=== PATIENT | female | born 1980 | race Caucasian/White ===

== ENCOUNTER 2016-04-20 13:25 | Inpatient (IN) | payer MEDICARE ==
[~2016-04-20] VITALS: Ht 160 cm; Wt 74.5 kg
[~2016-04-20 13:25] MED LIST: AMBIEN10 MG PO; CIPRO500 MG PO; EFFEXOR XR37.5 MG PO; PERCOCET 5-3251 TAB PO; SEROQUEL400 MG PO; TOPAMAX200 MG PO; XANAX2 MG PO
[2016-04-20 14:51] LABS: APPEARANCE CLEAR (CLEAR); BILIRUBIN NEGATIVE (NEGATIVE); COLOR YELLOW (YELLOW); GLUCOSE NEGATIVE (NEGATIVE); KETONE NEGATIVE (NEGATIVE); LEUKOCYTE ESTERASE TRACE (NEGATIVE); NITRITE NEGATIVE (NEGATIVE); PROTEIN NEGATIVE (NEGATIVE); UROBILINOGEN NORMAL (NORMAL)
[2016-04-20 14:54] LABS: BACTERIA MODERATE /hpf (NONE SEEN); RED CELLS - URINE 0-5 /hpf (0-5)
[2016-04-20 15:04] LABS: BASOPHILS 0.1 % (0.0-2.0); HEMATOCRIT 37.4 % (36.0-48.0); HEMOGLOBIN 11.9 g/dL (12-16); IMMATURE GRANULOCYTES 0.4 % (0-5); MCH 28.3 pg (26.0-34.0); MCHC 31.8 g/dL (31.0-37.0); MCV 88.8 fL (80.0-100.0); MEAN PLATELET VOLUME 9.3 fL (7.4-10.4); MONOCYTES 3.8 % (2-11); NEUTROPHILS 85.7 % (40-80); PLATELET COUNT 236 10x3/uL (130-400); RBC 4.21 10x6/uL (4.00-5.40); RDW 15.4 % (11.5-14.5); WBC 16.8 10x3/uL (4.8-10.8)
[2016-04-20 15:43] LABS: ALKALINE PHOSPHATASE 68 U/L (46-116); ALT (SGPT) 20 U/L (10-68); BILIRUBIN - TOTAL 0.26 mg/dL (0.2-1.3); CALC OSMOLALITY 275 mosm/kg (275-300); CARBON DIOXIDE 32.3 mmol/L (21.0-32.0); CHLORIDE - SERUM 103 mmol/L (98-107); CREATININE - SERUM 0.7 mg/dL (0.6-1.3); GLUCOSE 103 mg/dL (74-106); POTASSIUM - SERUM 4.1 mmol/L (3.5-5.1); PROTEIN - SERUM 7.3 g/dL (6.4-8.2); SODIUM 139 mmol/L (136-145); UREA NITROGEN 7 mg/dL (7-18); eGFR NON AFRICAN AMERICAN > 90 mL/min (90-120)
[2016-04-20 15:52] LABS: PRO BNP 883 pg/mL (0-125)
[2016-04-20 17:24] VITALS: BP 138/95; BMI 59.4
--- NOTE | 2016-04-20 17:50 | NUR ---
1730- RECEIVED PT VIA STRETCHER FROM HOSPITAL STAFF. PT IS ALERT AND ORIENTED. UP WITH ASSIST. ON 02 AT 2L VIA NC. NO MONITOR. IV SEEN TO LEFT FOREARM THAT IS CURRENTLY SALINE LOCKED. QUICKSTART DONE, ADMISSION ASSESSMENT DONE, AND ADMISSION HISTORY DONE. WILL CONTINUE TO AWAIT NEW ORDERS.
--- NOTE | 2016-04-20 18:54 | NUR ---
RESTING QUIETLY NAD NOTED
[2016-04-20 20:30] VITALS: BP 103/57
--- NOTE | 2016-04-20 23:23 | NUR ---
INIITAL ROUNDS COMPLETED AT 1920 HRS. PT ASKING FORHER PAIN MEDS AND SLEEPING MEDS. INFORMED PT THEY WERE NOT REORDEREED AT THIS TIME ADN RATIONALE THEY ARE TEACHER DEPRESSANTS AND HER RESP STATUS IS IMPAIRED AT THIS TIME. PT STATED UNDERSTANDING. ASSESSMENT COMPLETED AT 2015 HRS. VSS. IV TO LFA SL. LUNGS DIMINISHED IN BASES BILAT. O2 3LNC. PT UP TO BR WITH MINIMAL ASSIST. GARCIA. FRINED AT BEDSIDE. PT CURRENTLY EATING A POPSICLE. WILL CONTNUE TO MONITOR. SR UP X2, CALL LIGHT WITHIN REACH.
[2016-04-21 00:30] VITALS: BP 119/76
--- NOTE | 2016-04-21 03:05 | NUR ---
PT UP IN SHOWER. REQUESTING FOOD AND TOOTHBRUSH. WILL CONTINUE TO MONITOR.
[2016-04-21 04:30] VITALS: BP 105/54
--- NOTE | 2016-04-21 05:19 | NUR ---
PT RESTING WITH EYES CLOSED. RESP EVEN AND REGULAR. SR UP X2, CALL LIGHT WITHIN REACH. EXPERIMENTAL MACHINIST AT BEDSIDE.
--- NOTE | 2016-04-21 07:46 | NUR ---
ASSESSMENT COMPLETED. O2 AT 3 L/M PER NC. LUNGS DEMISHED IN BASES. UP WITH ASSIST DUE TO WEAKNESS. FAMILY AT BEDSIDE. SR UP TIMES 2 WITH CALL LIGHT IN REACH.
[2016-04-21 08:00] VITALS: BP 114/63
--- NOTE | 2016-04-21 11:08 | NUR ---
RESITNG QUIETLY RESP UNLABORED NAD NOTED
[2016-04-21 11:12] LABS: BASOPHILS 0 % (0.0-2.0); EOSINOPHILS 0 % (0-7); HEMATOCRIT 38.2 % (36.0-48.0); HEMOGLOBIN 11.4 g/dL (12-16); IMMATURE GRANULOCYTES 0.8 % (0-5); MCH 28.4 pg (26.0-34.0); MCHC 29.8 g/dL (31.0-37.0); MEAN PLATELET VOLUME 9.8 fL (7.4-10.4); MONOCYTES 2.4 % (2-11); NEUTROPHILS 89.8 % (40-80); PLATELET COUNT 270 10x3/uL (130-400); RBC 4.01 10x6/uL (4.00-5.40); RDW 15.3 % (11.5-14.5); WBC 18.8 10x3/uL (4.8-10.8)
[2016-04-21 11:18] LABS: MCV 95.3 fL (80.0-100.0)
[2016-04-21 11:23] LABS: CALCIUM 8.8 mg/dL (8.5-10.1); CARBON DIOXIDE 31.8 mmol/L (21.0-32.0); CHLORIDE - SERUM 103 mmol/L (98-107); CREATININE - SERUM 0.8 mg/dL (0.6-1.3); GLUCOSE 144 mg/dL (74-106); SODIUM 141 mmol/L (136-145); eGFR NON AFRICAN AMERICAN 87 mL/min (90-120)
[2016-04-21 11:29] LABS: CALC OSMOLALITY 282 mosm/kg (275-300); POTASSIUM - SERUM 3.2 mmol/L (3.5-5.1); UREA NITROGEN 9 mg/dL (7-18)
[2016-04-21 12:00] VITALS: BP 107/47
[2016-04-21 16:00] VITALS: BP 106/74
--- NOTE | 2016-04-21 18:47 | NUR ---
LYING QUIETLY. DNIES ANY NEEDS. CALL LIGHT IN REACH WITH SR UP.. WILL MONITOR
[2016-04-21 20:00] VITALS: BP 116/69
--- NOTE | 2016-04-21 20:32 | NUR ---
RESUMED CARE OF PT, LYING IN BED RESPIRATIONS EVEN AND UNLABORED ON 3LPM VIA NC. FAMILY AT BEDSIDE. NO NEEDS VOICED AT THIS TIME. WILL CONTINUE TO MONITOR. SEE NURSE ASSESSMENT.
--- NOTE | 2016-04-21 21:03 | NUR ---
BACK FROM CT
[2016-04-22 00:15] VITALS: BP 112/73
[2016-04-22 04:42] VITALS: BP 113/70
[2016-04-22 06:04] LABS: CALC OSMOLALITY 278 mosm/kg (275-300); CALCIUM 8.4 mg/dL (8.5-10.1); CHLORIDE - SERUM 102 mmol/L (98-107); CREATININE - SERUM 0.8 mg/dL (0.6-1.3); GLUCOSE 137 mg/dL (74-106); SODIUM 139 mmol/L (136-145); UREA NITROGEN 10 mg/dL (7-18); eGFR NON AFRICAN AMERICAN 87 mL/min (90-120)
[2016-04-22 06:08] LABS: POTASSIUM - SERUM 3.7 mmol/L (3.5-5.1)
[2016-04-22 06:09] LABS: BASOPHILS 0 % (0.0-2.0); EOSINOPHILS 0 % (0-7); HEMATOCRIT 35.5 % (36.0-48.0); HEMOGLOBIN 11.1 g/dL (12-16); LYMPHOCYTES 5.8 % (15-50); MCH 27.8 pg (26.0-34.0); MCHC 31.3 g/dL (31.0-37.0); MEAN PLATELET VOLUME 9.6 fL (7.4-10.4); NEUTROPHILS 89.2 % (40-80); PLATELET COUNT 312 10x3/uL (130-400); RBC 3.99 10x6/uL (4.00-5.40); RDW 15.7 % (11.5-14.5)
--- NOTE | 2016-04-22 06:10 | NUR ---
NO CHANGES FROM PREVIOUS ASSESSMENT, CALL LIGHT IN REACH. WILL CONTINUE TO MONITOR.
--- NOTE | 2016-04-22 08:04 | NUR ---
ASSESSMENT DONE. PT SLEEPING. EASILY AWAKEN. WHEEZING NOTED BILATERALLY. DENIES NEEDS AT THIS TIME. SPOUSE IN ROOM. CALL LIGHT WITH IN REACH. WILL CONT. TO MONITOR.
[2016-04-22 08:27] VITALS: BP 112/78
--- NOTE | 2016-04-22 08:38 | NUR ---
IV PATENT. AT BS. CALL LIGHT IN REACH. WILL CONT. PLAN OF CARE.
[2016-04-22 11:01] VITALS: BP 110/74
[2016-04-22 14:08] VITALS: Ht 160 cm; Wt 74.5 kg
--- NOTE | 2016-04-22 14:37 | NUR ---
PT SITTING UP IN BED TALKING ON THE PHONE. DENIES NEEDS. CALL LIGHT WITH IN REACH. WILL CONT. TO MONITOR.
[2016-04-22 15:00] VITALS: BP 110/70
--- NOTE | 2016-04-22 19:40 | NUR ---
LYING IN BED, REQUEST ICE CREAM AND POPSICLE GIVEN, DENIES NEEDS, ASSESSMENT COMPLETE, BED LOWEST POSITION, CALL LIGHT IN REACH, FAMILY AT BEDSIDE, WILL CONTINUE TO MONITOR
--- NOTE | 2016-04-23 00:27 | NUR ---
ENTRY ANALYST AT BEDSIDE FOR VS, NEEDS ADDRESSED. CALL LIGHT IN REACH. WILL CONT TO MONITOR.
[2016-04-23 02:00] VITALS: BP 119/69
[2016-04-23 04:00] VITALS: BP 122/75
[2016-04-23 05:54] LABS: BASOPHILS 0 % (0.0-2.0); EOSINOPHILS 0 % (0-7); HEMATOCRIT 37.5 % (36.0-48.0); HEMOGLOBIN 11.5 g/dL (12-16); IMMATURE GRANULOCYTES 2.1 % (0-5); LYMPHOCYTES 8.3 % (15-50); MCH 27.8 pg (26.0-34.0); MCHC 30.7 g/dL (31.0-37.0); MCV 90.8 fL (80.0-100.0); MEAN PLATELET VOLUME 9.4 fL (7.4-10.4); MONOCYTES 4.1 % (2-11); NEUTROPHILS 85.5 % (40-80); PLATELET COUNT 295 10x3/uL (130-400); RBC 4.13 10x6/uL (4.00-5.40); RDW 15.8 % (11.5-14.5); WBC 17.1 10x3/uL (4.8-10.8)
[2016-04-23 06:10] LABS: CALC OSMOLALITY 283 mosm/kg (275-300); CALCIUM 8.5 mg/dL (8.5-10.1); CARBON DIOXIDE 30.8 mmol/L (21.0-32.0); CHLORIDE - SERUM 106 mmol/L (98-107); CREATININE - SERUM 0.8 mg/dL (0.6-1.3); GLUCOSE 130 mg/dL (74-106); POTASSIUM - SERUM 4.2 mmol/L (3.5-5.1); SODIUM 141 mmol/L (136-145); eGFR NON AFRICAN AMERICAN 87 mL/min (90-120)
[2016-04-23 06:12] LABS: UREA NITROGEN 16 mg/dL (7-18)
[2016-04-23 07:13] LABS: MAGNESIUM - SERUM 2.3 mg/dL (1.8-2.4)
--- NOTE | 2016-04-23 07:49 | NUR ---
ASSESSMENT DONE. PT SLEEPING. WEARING BI-PAP. APPEARS COMFORTABLE. RESP EVEN AND UNLABORED. NO DISTRESS NOTED. CALL LIGHT WITH IN REACH. WILL CONT. TO MONITOR.
[2016-04-23 08:39] VITALS: BP 166/90
--- NOTE | 2016-04-23 09:30 | NUR ---
IV PATENT. AT BS. CALL LIGHT IN REACH. WILL CONT. PLAN OF CARE.
--- NOTE | 2016-04-23 10:58 | NUR ---
ALL OF PT'S MEDS GIVEN FROM 0900-11. NURSE WAS UNABLE TO SCAN MEDS INTO SYSTEM OR ENTER NUMBER. NURSE ATTEMPTED TO SIMPLY CLICK ON MED TO SAY IT WAS GIVEN AND THE SCREEN WOULD GO BLANK. IT AWARE OF SITUATION. IV TO PT'S RIGHT WIRST INFILTRATED. IV REMOVED. FLUSED IV IN PT'S LEFT HAND IN AN ATTEMPT TO USE, BUT IV BLEW. REMOVED THAT IV WELL. WILL RE-SITE NEW IV.
--- NOTE | 2016-04-23 11:40 | NUR ---
IV PLACED TO PTS RIGHT HAND WITH 22G X1 STICK. PT TOLERATED WELL.
--- NOTE | 2016-04-23 17:00 | NUR ---
PT'S SPOUSE PUSHING PT IN HALLS VIA W/C. PT ON RA. TOLERATING WELL.
--- NOTE | 2016-04-23 18:27 | NUR ---
PT SITTING UP IN BED "FACE-TIMING" ON HER PHONE. NO DISTRESS NOTED. CALL LIGHT WITH IN REACH. WILL CONT. TO MONITOR.
--- NOTE | 2016-04-23 18:32 | NUR ---
PT STATES SHE IS UNABLE TO GIVE URINE SPECIMEN IN A CUP, BECAUSE SHE CANNOT HOLD A CUP TO PEE.
--- NOTE | 2016-04-23 19:37 | NUR ---
DR MACDONALD AT BED SIDE TO SEE PT.
[2016-04-23 21:03] VITALS: BP 143/80
--- NOTE | 2016-04-23 21:23 | NUR ---
HS MEDS GIVEN WITH FRESH ICE WATER, HS SNACK PROVIDED, FAMILY AT BED SIDE.
--- NOTE | 2016-04-24 04:03 | NUR ---
RESTING WITH EYES CLOSED, RESPERATIONS EVEN, BI PAP IN USE, NO S/S DISTRESS NOTED.
[2016-04-24 06:00] VITALS: BP 91/52
[2016-04-24 06:12] LABS: BASOPHILS 0.2 % (0.0-2.0); EOSINOPHILS 0.1 % (0-7); HEMATOCRIT 39.2 % (36.0-48.0); HEMOGLOBIN 12.2 g/dL (12-16); IMMATURE GRANULOCYTES 4.2 % (0-5); LYMPHOCYTES 26.7 % (15-50); MCH 28.2 pg (26.0-34.0); MCHC 31.1 g/dL (31.0-37.0); MCV 90.7 fL (80.0-100.0); MEAN PLATELET VOLUME 9.1 fL (7.4-10.4); MONOCYTES 8.2 % (2-11); NEUTROPHILS 60.6 % (40-80); PLATELET COUNT 288 10x3/uL (130-400); RBC 4.32 10x6/uL (4.00-5.40); RDW 15.9 % (11.5-14.5); WBC 15.1 10x3/uL (4.8-10.8)
[2016-04-24 06:41] LABS: CALC OSMOLALITY 281 mosm/kg (275-300); CALCIUM 8.2 mg/dL (8.5-10.1); CARBON DIOXIDE 27.5 mmol/L (21.0-32.0); CHLORIDE - SERUM 106 mmol/L (98-107); CREATININE - SERUM 0.8 mg/dL (0.6-1.3); GLUCOSE 90 mg/dL (74-106); SODIUM 140 mmol/L (136-145); UREA NITROGEN 20 mg/dL (7-18); eGFR NON AFRICAN AMERICAN 87 mL/min (90-120)
[2016-04-24 06:43] LABS: POTASSIUM - SERUM 3.3 mmol/L (3.5-5.1)
[2016-04-24 08:00] VITALS: BP 107/69
[2016-04-24 12:00] VITALS: BP 109/69
--- NOTE | 2016-04-24 14:07 | NUR ---
Is the patient Alert and Oriented? Yes 0 * How many steps to enter\exit or inside your home? 7 0 * PCP DR. DE LA VEGA BUT WANTS TO CHANGE TO USE [facility] 0 * Pharmacy [facility] [address] * Preadmission Environment Home with Family 0 * ADLs Partial Dependent 0 * Partial ADLs (Assistance needed) Bathing 0 * Equipment CPAP 0 * List name and contact numbers for known caregivers / representatives who currently or will assist patient after discharge: MOTHER: TOMASA COOPER [phone] 0 * Community resources currently utilized None 0 * Additional services required to return to the preadmission environment? No 0 * Can the patient safely return to the preadmission environment? Yes 0 * Has this patient been hospitalized within the prior 30 days at any hospital? No 0 PATIENT IS ALERT AND AWAKE. SHE STATES SHE LIVES AT HOME WITH HER MOTHER, HER BOYFRIEND, AND HER CHILDREN. SHE STATES HER MOTHER WILL BE AVAILABLE TO DRIVE HER HOME AT DISCHARGE. PATIENT STATES SHE HAS BEEN REQUIRING HELP WITH HER ADL'S AND HER BOYFRIEND ASSISTS HER WITH HER BATHS. PATIENT STATES HER PCP IS DR. DE LA VEGA. SHE STATES SHE WANTS TO CHANGE TO [facility] PHYSICIAN. SHE WILL ASK ABOUT CHANGING MD'S AT FOLLOW UP. PAT[facility] [address] SHE DENEIS HOME HEALTH. SHE TELLS ME THAT SHE HAS CPAP AT HOME PROVIDED BY [facility]. PATIENT STATES THERE ARE 7 STEPS TO ENTER HER HOME.
--- NOTE | 2016-04-24 14:49 | NUR ---
ALERT AND ORIENTED X4. SITTING UP IN CHAIR. DENIES PAIN. CHRONIC SOB TREATED WITH OXYGEN THERAPY AND UPDRAFTS. ELECTROLYTE PROTOCOL INITIATED BY STUDENT NURSE. SERUM POTASSIUM LAB ORDERED IN 4 HOURS PER PROTOCOL. SPOUSE AT BEDSIDE. CONTINUE PLAN OF CARE AND SAFETY PRECAUTIONS.
[2016-04-24 16:00] VITALS: BP 125/67
--- NOTE | 2016-04-24 17:51 | NUR ---
SITTING UP IN CHAIR. ALERT AND ORIENTED X4. NO CHANGE. DENIES PAIN. CHRONIC SOB TREATED WITH OXYGEN THERAPY. CONTINUE PLAN OF CARE AND SAFETY PRECAUTIONS.
--- NOTE | 2016-04-24 19:48 | NUR ---
OUT OF ROOM WITH .
--- NOTE | 2016-04-24 21:16 | NUR ---
HS MEDS GIVEN WITH FRESH CUP OF ICE AND COLA. PAIN AND ANXIETY MEDS GIVEN AT AT PT REQUEST. RT ALSO AT BED SIDE FOR UPDRAFT AND TO PLACE BIPAP ON PT. NO OTHER NEEDS, AT THIS TIME, WILL CONT TO MONITOR.
[2016-04-24 21:39] VITALS: BP 111/72
--- NOTE | 2016-04-25 00:35 | NUR ---
TILT WALL SUPERVISOR AT BEDSIDE TO OBTAIN VITALS, CALL LIGHT IN REACH. WILL CONTINUE WITH PLAN OF CARE.
--- NOTE | 2016-04-25 04:35 | NUR ---
PT RESTING ON RIGHT SIDE, BIPAP IN USE, BED LOW, CL IN REACH, WILL CONT TO MONITOR.
[2016-04-25 04:56] VITALS: BP 117/68
[2016-04-25 07:03] LABS: HEMATOCRIT 40.4 % (36.0-48.0); HEMOGLOBIN 12.8 g/dL (12-16); MCH 28.3 pg (26.0-34.0); MCHC 31.7 g/dL (31.0-37.0); MCV 89.4 fL (80.0-100.0); MEAN PLATELET VOLUME 9.3 fL (7.4-10.4); PLATELET COUNT 297 10x3/uL (130-400); RBC 4.52 10x6/uL (4.00-5.40); RDW 15.5 % (11.5-14.5); WBC 20.3 10x3/uL (4.8-10.8)
[2016-04-25 07:06] LABS: CALC OSMOLALITY 286 mosm/kg (275-300); CALCIUM 8.2 mg/dL (8.5-10.1); CARBON DIOXIDE 28.7 mmol/L (21.0-32.0); CHLORIDE - SERUM 105 mmol/L (98-107); CREATININE - SERUM 0.8 mg/dL (0.6-1.3); GLUCOSE 134 mg/dL (74-106); SODIUM 141 mmol/L (136-145); UREA NITROGEN 23 mg/dL (7-18); eGFR NON AFRICAN AMERICAN 87 mL/min (90-120)
[2016-04-25 07:22] LABS: LYMPHOCYTES 11 % (15-50); MONOCYTES 1 % (2-11); NEUTROPHILS 88 % (40-80); PLATELET ESTIMATE NORMAL
--- NOTE | 2016-04-25 07:36 | NUR ---
AM ROUNDING- PT LAYING IN BED ON RIGHT SIDE WITH EYES CLOSED RESTING. BOYFRIEND LAYING BESIDE PT. ON EP, WILL CHECK AM LABS AND TREAT PER PROTOCOL. ON 02 AT 5L VIA NC. NO MONITOR. IV SEEN TO RIGHT HAND WITH NS RUNNING AT KVO (5CC). PER REPORT PT IS ALERT AND ORIENTED AND UP AD YAJAIRA. NO NEED AT CURRENT TIME. WILL CONTINUE TO MONITOR.
[2016-04-25 08:01] VITALS: BP 90/46
--- NOTE | 2016-04-25 10:59 | NUR ---
Nutrition Follow Up: Chart reviewed. Pt is eating 79% meal avg on a regular diet. Wt gain 19# since admit per chart. +BM 04/25/16. Labs noted. Meds noted including Lasix, Solu-Medrol, Flagyl. Pt with good po intake at this time. Rec continue current diet. RD following.
[2016-04-25 12:24] VITALS: BP 130/76
[2016-04-25 16:00] VITALS: BP 139/61
--- NOTE | 2016-04-25 17:29 | NUR ---
PT SITTING UP IN BED WITH EYES OPEN EATING DINNER. BOYFRIEND AT BEDSIDE. DENIES ANY NEED AT CURRENT TIME. WILL CONTINUE TO MONITOR AND CONTINUE WITH PLAN OF CARE.
[2016-04-25 20:00] VITALS: BP 111/55
[2016-04-25 22:28] LABS: MYCOPLASMA PNEUMO IGG 643 U/mL (0-99)
[2016-04-26] VITALS: BP 109/44
[2016-04-26 04:00] VITALS: BP 120/62
[2016-04-26 06:48] LABS: HEMATOCRIT 40.2 % (36.0-48.0); HEMOGLOBIN 12.8 g/dL (12-16); MCH 28.1 pg (26.0-34.0); MCHC 31.8 g/dL (31.0-37.0); MCV 88.4 fL (80.0-100.0); MEAN PLATELET VOLUME 9.2 fL (7.4-10.4); PLATELET COUNT 320 10x3/uL (130-400); RBC 4.55 10x6/uL (4.00-5.40); RDW 15.6 % (11.5-14.5); WBC 22.5 10x3/uL (4.8-10.8)
[2016-04-26 06:56] LABS: CALC OSMOLALITY 287 mosm/kg (275-300); CARBON DIOXIDE 28.2 mmol/L (21.0-32.0); CHLORIDE - SERUM 107 mmol/L (98-107); CREATININE - SERUM 0.9 mg/dL (0.6-1.3); GLUCOSE 148 mg/dL (74-106); SODIUM 141 mmol/L (136-145); UREA NITROGEN 25 mg/dL (7-18); eGFR NON AFRICAN AMERICAN 76 mL/min (90-120)
[2016-04-26 08:18] LABS: EOSINOPHILS 8 % (0-7); LYMPHOCYTES 10 % (15-50); MONOCYTES 7 % (2-11); NEUTROPHILS 66 % (40-80); PLATELET ESTIMATE NORMAL
[2016-04-26 08:22] VITALS: BP 125/59
--- NOTE | 2016-04-26 10:28 | NUR ---
0715- AM ROUNDING- PT LAYING IN BED ON BACK WITH EYES CLOSED RESTING. BOYFRIEND AT BEDSIDE. ON AT 5L VIA NC. NO MONITOR. IV SEEN TO RIGHT HAND WITH NS RUNNING AT KV0 (5CC). EP, WILL CHECK AM LABS AND TX PER PROTOCOL. WILL CONTINUE TO MONITOR.
[2016-04-26 12:42] VITALS: BP 126/86
--- NOTE | 2016-04-26 14:38 | NUR ---
1100- PT ASKED ME TO UNHOOK HER FROM HER IV FLUIDS. I ASKED PT WHY. PT STATED "I WANT TO GO DOWN TO THE [place]". I ASKED PT IF SHE WAS GOING DOWN TO SMOKE. PT STATES " YES IM GOING TO SMOKE, ALL I NEED IS A FEW DRAGS". I INFORMED PT THAT I DID NOT THINK THAT WAS A VERY GOOD IDEA BECAUSE SHE HAS A NICOTINE PATCH ON (TO THE BACK OF HER RIGHT SHOULDER). PT STATED " I KNOW". WILL CONTINUE TO MONITOR.
--- NOTE | 2016-04-26 14:41 | NUR ---
PT OUT OF ROOM VIA WHEEL CHAIR TO " GO SMOKE". PT STATED TO ME SHE NEVER WENT BEFORE BECAUSE THEY COULDN'T FIND A WHEELCHAIR.
[2016-04-26 16:55] VITALS: BP 121/70
--- NOTE | 2016-04-26 18:08 | NUR ---
PT LAYING IN BED ON RIGHT SIDE TALKING ON CELL PHONE. BOYFRIEND AT BEDSIDE. NO NEED AT CURRENT TIME. WILL CONTINUE TO MONITOR.
--- NOTE | 2016-04-26 19:30 | NUR ---
INITIAL ROUNDS COMPLETED. PT DECLINING O2 AT HTIS TIME. STATES IS GOING OUTSIDE TO SEE FAMILY. REINFORCED NO SMOKING ON PROPERTY AND SMOKING WILL AGGRAVATE HER RESP STATUS. ATTEMPTED TO PERSAUDE PT NOT TO GO OUTSIDE WITHOUT SUCCESS. PT DOWN HALLWAY VIA W/C.
--- NOTE | 2016-04-26 19:52 | NUR ---
PT BACK TO ROOM WITH LARGE ENTOURAGE IN TOW AND PIZZA. PT DENIES ANY DISCOMFORT.
[2016-04-26 21:31] VITALS: BP 121/64
--- NOTE | 2016-04-26 22:19 | NUR ---
ASSESSMENT COMPLETED AT 2019 HRS. VSS. [id number]. IV TO R HAND SL. LUNGS DIMINISHED IN BASES BILAT. GARCIA. PALPABLE PERIPHERAL PULSES. FAMILY AT BEDSDIE. PM MEDS GIVEN. PT CURRENTLY ON BIPAP. WILL CONTINUE TO MONITOR. SR UP X2,CALL LIGHT WITHIN REACH.
--- NOTE | 2016-04-27 00:30 | NUR ---
SCHEDULED MED GIVEN. PT DENIES ANY DISCOMFORT. WILL CONTINUE TO MONITOR.
--- NOTE | 2016-04-27 02:15 | NUR ---
PT RESTING WITH EYES CLOSED. RESP EVEN AND REGULAR. SR UP X2, CALL LIGHT WITHIN REACH.
--- NOTE | 2016-04-27 04:22 | NUR ---
PT RESTING WITH EYES CLOSED. RESP EVEN AND REGULAR. SR UP X2, CALL LIGHT WITHIN REACH.
[2016-04-27 05:30] LABS: BASOPHILS 0.1 % (0.0-2.0); EOSINOPHILS 0.1 % (0-7); HEMOGLOBIN 13.1 g/dL (12-16); LYMPHOCYTES 9.8 % (15-50); MCH 27.8 pg (26.0-34.0); MCHC 31.2 g/dL (31.0-37.0); MEAN PLATELET VOLUME 9.4 fL (7.4-10.4); MONOCYTES 4.5 % (2-11); NEUTROPHILS 80.5 % (40-80); PLATELET COUNT 311 10x3/uL (130-400); RBC 4.72 10x6/uL (4.00-5.40); RDW 15.6 % (11.5-14.5); WBC 19.1 10x3/uL (4.8-10.8)
[2016-04-27 05:51] LABS: CALC OSMOLALITY 283 mosm/kg (275-300); CALCIUM 8.1 mg/dL (8.5-10.1); CARBON DIOXIDE 27.3 mmol/L (21.0-32.0); CHLORIDE - SERUM 104 mmol/L (98-107); CREATININE - SERUM 0.7 mg/dL (0.6-1.3); GLUCOSE 167 mg/dL (74-106); POTASSIUM - SERUM 4.3 mmol/L (3.5-5.1); SODIUM 138 mmol/L (136-145); UREA NITROGEN 25 mg/dL (7-18); eGFR NON AFRICAN AMERICAN > 90 mL/min (90-120)
[2016-04-27 05:53] VITALS: BP 109/54
--- NOTE | 2016-04-27 06:37 | NUR ---
VSS THROUGHOUT NIGHT. PT DENIED ANY DISCOMFORT. NEEDS MET; WILL CONTINUE TO MONITOR.
--- NOTE | 2016-04-27 07:24 | NUR ---
PT IS ALERT. NO SS OF DISTRESS AT THIS TIME. WILL CONTINUE TO MONTIOR.
--- NOTE | 2016-04-27 07:36 | NUR ---
PATIENT IS ALERT/ORIENT X4. SALINE LOCK RIGHT HAND COVERED SO PATIENT CAN GET IN SHOWER. C-PAP ON AT HS. OXYGEN AT 3L PER N/C. BOYFRIEND IN ROOM WITH PATIENT.
[2016-04-27 09:19] VITALS: BP 121/51
[2016-04-27 12:21] VITALS: BP 120/69
--- NOTE | 2016-04-27 13:02 | NUR ---
PHYSICAL THERPAY HERE TO WALK WITH PATIENT. PATIENT WENT OUTSIDE WITH BOYFRIEND TO SMOKE. THERAPY STATED THAT THEY WILL NOT BE WORKING WITH THIS PATIENT. PATIENT AMBULATES BY SELF.
[2016-04-27] MEDS ORDERED: PREDNISONE10 MG PO ×2 (14:20→17:07)
[2016-04-27] MEDS ORDERED: SINGULAIR10 MG PO ×2 (14:20→17:05)
[2016-04-27] MEDS ORDERED: BENZONATATE200 MG PO ×2 (14:20→17:11)
[2016-04-27] MEDS ORDERED: PROVENTIL HFA6.7 GM INH (14:30)
[2016-04-27] MEDS ORDERED: SYMBICORT 16010.2 GM INH (14:30)
[2016-04-27] MEDS ORDERED: NYSTATIN ORAL SU5 ML PO (15:14)
--- NOTE | 2016-04-27 15:43 | NUR ---
DISCHARGE ORDERS WRITTEN DR MORENO.
[2016-04-27 15:49] VITALS: BP 115/83
[2016-04-27] MEDS ORDERED: IPRAT-ALBUT 0.5-3 ML UPD (17:05)
[2016-04-27] MEDS ORDERED: PROMETHAZINE W473 M1 PO (17:10)
[2016-04-27] MEDS ORDERED: MUCINEX DM ER1 EAC1 PO (17:10)
[2016-04-27] MEDS ORDERED: LEVAQUIN500 MG PO (17:13)
--- NOTE | 2016-04-27 17:37 | NUR ---
PATIENT GIVEN DISCHARGE INSTRUCTIONS. BOYFRIEND HERE TO TAKE PATIENT HOME
--- NOTE | 2016-04-27 17:49 | NUR ---
patient discharged home with significant other and child. Order obtained for Nebulizer. Provider is [facility]. CM contacted [employer] sales representative graphic art Jimi, who states he will contact patient at home for delivery. Patient states it does not matter to her if it is delivered today or tomorrow, as her friend mut get home by a certain time, due to having an ankle monitor on. Address is: [address] [place] [id number]. . [facility]acy [facility] use [facility] and meds are called in there. Patient uses a C-Pap prescribed by Dr Patterson. IMM signed Nd Patient Choice Form signed.Cinthia Lopez RN, CM.
--- NOTE | 2016-04-27 17:58 | NUR ---
PATIENT TAKEN OUT BY STAFF AND
--- NOTE | 2016-04-29 11:07 | NUR ---
Patient Name: DAKSHA DAMON Encounter No: [id number] : 1980 Primary Insurance: MEDICARE A & B Anticipated DC Date: 04-27-2016 Planned Disposition: Home DCP follow-up note: CM RECEIVED MESSAGE FROM PT THAT SHE HAS NOT RECEIVED HER NEBULIZER. CM CALLED [facility], , WHO REPORTS THAT [facility] NEVER RECEIVED SIGNED ORDER FROM THE DOCTOR TO PROVIDE THE NEBULIZER. [facility] IS CONTACTING DR. MACDONALD'S OFFICE TO OBTAIN THE ORDER AND WILL ARRANGE HOME DELIVERY WHEN THE SIGNED ORDER IS PROVIDED FROM DR. MACDONALD. [facility] HAS PT'S CELL PHONE NUMBER AND WILL FOLLOW UP WITH PT. CM CALLED DAKSHA DAMON, , INFORMED HER THAT [facility] IS WORKING ON GETTING THE SIGNED ORDER AND WILL ARRANGE DELIVERY SOON THE SIGNED ORDER IS RECEIVED. Michele La, CASE MANAGEMENT
--- NOTE | 2016-04-29 16:54 | NUR ---
Patient Name: DAKSHA DAMON Encounter No: [id number] : 1980 Primary Insurance: MEDICARE A & B Anticipated DC Date: 04-27-2016 Planned Disposition: Home DCP follow-up note: CM FAXED CHART NOTES TO [facility], , TO ASSIST IN OBTAINING NEEDED NEBULIZER FOR PT. CM CALLED PT AT HOME, DAKSHA DAMON, , NOTIFIED OF EFFORTS. JAN WAGNER, CASE MANAGEMENT
--- NOTE | 2016-05-03 13:49 | CN ---
PATIENT NAME:DAKSHA AVILES MEDICAL RECORD: [id number] : [birth year] LOCATION:D. D.2130 ADMIT DATE: 04/20/16 ACCOUNT: [id number] CONSULTING PHYSICIAN: BETHANY MILLARD MD REFERRING PHYSICIAN: HUA THORNTON MD DATE OF CONSULTATION: 04/21/2016 CONSULT REQUESTING PHYSICIAN: Dr. Hau Thornton. REASON FOR CONSULTATION: Acute exacerbation of chronic obstructive pulmonary disease, obstructive sleep apnea, dyspnea, hypoxia. HISTORY OF PRESENT ILLNESS: Ms. Aviles is a 35-year-old female. She is sick for the last 1 week. She is coughing. She is wheezing. She has shortness of breath with mild exertion. The patient came into the ER. In evaluation, the patient was hypoxic and also a chest radiograph showed bilateral increased interstitial marking with significant leukocytosis. Now, she is still coughing and wheezing, but feeling a little bit better. She denies any fever or chills, no night sweats. REVIEW OF SYSTEMS: Mainly in the history of present illness. PAST MEDICAL HISTORY: 1. Obstructive sleep apnea. 2. Asthma. 3. History of seizure disorder. 4. Tobacco dependence syndrome. 5. Diabetes. 6. History of glaucoma. PAST SURGICAL HISTORY: 1. Hysterectomy. 2. She has a foot surgery. 3. Tubal ligation. ALLERGIES: SHE IS ALLERGIC TO PENICILLIN AND CEPHALEXIN. PRESENT MEDICATIONS: On [employer] was reviewed. PERSONAL AND SOCIAL HISTORY: The patient still continues to smoke 1 pack per day. She is a nondrinker. FAMILY HISTORY: Noncontributory. PHYSICAL EXAMINATION: GENERAL: Now, the patient is lying comfortably. The patient is not in acute distress. VITAL SIGNS: The blood pressure is 114/63, pulse is 108, respirations 19, temperature is 98.6, SpO2 is 90% on 4 liters nasal cannula. HEENT: Conjunctivae are pink. Sclerae nonicteric. NECK: Supple. There is no JVD. CHEST: There is wheeze on forceful expiration. There are bibasilar crackles. HEART: Rhythm regular, normal sound, no murmur. ABDOMEN: Soft. Bowel sounds present. No hepatosplenomegaly. RECTAL: Deferred. CONSULT REPORT [id number] DAKSHA AVILES EXTREMITIES: No cyanosis, no clubbing, no pedal edema. SKIN: Warm, normal turgor. CENTRAL NERVOUS SYSTEM: The patient is awake and alert. There are no obvious cranial nerve abnormality. The gait was not tested. IMAGING: Chest radiograph, there is increased interstitial marking. OTHER LABORATORY DATA: CBC: WBC is 18.8, hemoglobin is 11.4, hematocrit 38.2. The platelet count is 270. Chemistry: Sodium is 141, potassium 3.2, BUN is 9, creatinine 0.8, glucose 144. ABG: The pH is 7.39, pCO2 of 48.3, the pO2 is 53, bicarbonate 29.6. IMPRESSION: 1. Acute exacerbation of chronic obstructive pulmonary disease. 2. Asthma-chronic obstructive pulmonary disease overlap syndrome. 3. Acute hypoxic respiratory failure. 4. Tracheobronchitis. 5. Possible pulmonary edema and congestive heart failure. 6. Obstructive sleep apnea, on home BiPAP. 7. Leukocytosis. 8. Morbid obesity. 9. History of seizure disorder. 10. Strep throat. RECOMMENDATION: 1. I have decreased methylprednisolone to 60 mg IV q.8 hourly, start her Singulair 10 mg a day, start on budesonide, albuterol nebulizer. 2. Albuterol and ipratropium nebulizer q.6 hourly. 3. BiPAP at night. Continue Levaquin IV. Supplemental oxygen is required. Increase Lasix to IV 40 mg q. day. Check the CTA of the chest to rule out PE, rule out pneumonia. Check the cardiac echo to rule out congestive heart failure. Dr. Thornton, once again thanks for involving me in the care of Ms. Aviles. TRANSINT:[id number] Voice Confirmation ID: [id number] DOCUMENT ID: [id number] BETHANY MILLARD MD at 1349 CC: HUA THORNTON MD [id number] DICTATION DATE: 04/21/16 1602 PHONOGRAPH MECHANIC: 04/21/166 DIS IN 04/27/16 [place] [id number] [place] [address]
--- NOTE | 2016-05-07 14:37 | EC ---
PATIENT:DAKSHA DAMON DATE OF SERVICE: 04/20/16 SEX: F MEDICAL RECORD: [id number] DATE OF : [birth year] LOCATION:D.M2 D.213 AGE OF PATIENT: 35 ADMISSION DATE: 04/20/16 REFERRING PHYSICIAN: INTERPRETING PHYSICIAN: EARLINE ROSA MD ECHOCARDIOGRAM REPORT ECHO CHARGES 4 ECHO COMPLETE CLINICAL DIAGNOSIS: CHF ? ECHOCARDIOGRAPHIC MEASUREMENTS (adult normal given) AC root (d.<3.7cm) 2.9 LV Septum d (<1.2 cm> 1.5 Valve Excursion 1.6 LV Septum (systole) 1.9 Left Atria (s.<4.0cm> 4.0 LVPW d(<1.2cm) 1.1 RV (d.<2.3cm) 3.7 LVPW (sytole) 1.3 LV diastole(<5.6CM) 4.9 MV E-F(>70mm/sec) LV systole 3.4 LVOT Diameter 1.8 MV exc.(>10mm) Est.ejection fraction (50-75%) Pericardial Effusion N DOPPLER: LVIT A 153 E 172 LA RVSP 29.0 LVOT 180 AOP1/2T Asc. Ao 227 RVOT 111 RA PA 142 AV Gradient Peak 21.0 AV Mean 11.2 AV Area 2.1 MV Gradient Peak 13.0 MV Mean 6.0 MV Area COMMENTS: Well Service Floor Worker: Siva ESCALERA Bariatric Surgeon:1 Dr. Rosa TAPE# PACS DATE OF SERVICE: 04/21/2016 Echocardiogram FINDINGS: 1. Left ventricular chamber size is within normal limits. Left ventricular systolic function is normal. Overall ejection fraction estimated at 65%. 2. Left atrium is upper limits of normal at 4.0 cm. Right atrium and right ventricular chamber sizes are within normal limits. 3. Valvular structures have normal structure and motion. There is aortic ECHOCARDIOGRAM REPORT [id number] DAKSHA DAMON sclerosis, but no aortic stenosis present. 4. Doppler interrogation reveals no significant valvular insufficiency or stenosis. Pulmonary systolic pressure is normal estimated at 29 mmHg. 5. No evidence of pericardial effusion or left ventricular thrombus. TRANSINT:[id number] Voice Confirmation ID: [id number] DOCUMENT ID: [id number] EARLINE ROSA MD at 1419 CC: [id number] DICTATION DATE: 04/22/16 1045 WORK AND FAMILY LIFE CONSULTANT: 04/22/162224 DIS IN 04/27/16 [facility] [address] [place] [id number]
== END 2016-04-27 17:58 | disposition home or self-care (01) | DRG 189 ==
LOC: D.ER 13:25 → D.M2 16:15
PROVIDERS: Family Medicine; Internal Medicine Pulmonary Disease; ADMIT Family Medicine Adult Medicine
PROC: 5A09457 Assistance with Respiratory Ventilation, 24-96 Consecutive Hours, Continuous Positive Airway Pressure (ICD-10-PCS; principal; 2016-04-23)
DX: J96.01 Acute respiratory failure with hypoxia (principal); J18.9 Pneumonia, unspecified organism; J44.1 Chronic obstructive pulmonary disease with (acute) exacerbation; N39.0 Urinary tract infection, site not specified; Z68.43 Body mass index [BMI] 50.0-59.9, adult; J44.0 Chronic obstructive pulmonary disease with (acute) lower respiratory infection; I50.32 Chronic diastolic (congestive) heart failure; G47.33 Obstructive sleep apnea (adult) (pediatric); F17.200 Nicotine dependence, unspecified, uncomplicated; E11.9 Type 2 diabetes mellitus without complications; E66.01 Morbid (severe) obesity due to excess calories; A59.9 Trichomoniasis, unspecified; F41.9 Anxiety disorder, unspecified; F32.9 Major depressive disorder, single episode, unspecified; J02.0 Streptococcal pharyngitis; D64.9 Anemia, unspecified

== ENCOUNTER 2016-05-12 18:41 | Emergency (ER) | payer MEDICARE ==
[2016-04-22 14:08] VITALS: BMI 59.3
[~2016-05-12 18:41] MED LIST changes: +BENZONATATE200 MG PO; +IPRAT-ALBUT 0.5-3 ML UPD; +LEVAQUIN500 MG PO; +MUCINEX DM ER1 EAC1 PO; +NYSTATIN ORAL SU5 ML PO; +PREDNISONE10 MG PO; +PROMETHAZINE W473 M1 PO; +PROVENTIL HFA6.7 GM INH; +SINGULAIR10 MG PO; +SYMBICORT 16010.2 GM INH
[2016-05-12 19:05] LABS: BASOPHILS 0.1 % (0.0-2.0); EOSINOPHILS 2.2 % (0-7); HEMATOCRIT 40.6 % (36.0-48.0); HEMOGLOBIN 12.8 g/dL (12-16); IMMATURE GRANULOCYTES 0.2 % (0-5); LYMPHOCYTES 28.6 % (15-50); MCH 28.3 pg (26.0-34.0); MCHC 31.5 g/dL (31.0-37.0); MCV 89.6 fL (80.0-100.0); MEAN PLATELET VOLUME 9.5 fL (7.4-10.4); MONOCYTES 6.3 % (2-11); NEUTROPHILS 62.6 % (40-80); PLATELET COUNT 271 10x3/uL (130-400); RBC 4.53 10x6/uL (4.00-5.40); RDW 16.1 % (11.5-14.5); WBC 8.2 10x3/uL (4.8-10.8)
[2016-05-12 19:29] LABS: ALBUMIN 3.2 g/dL (3.4-5.0); ALKALINE PHOSPHATASE 63 U/L (46-116); ALT (SGPT) 46 U/L (10-68); BILIRUBIN - TOTAL 0.28 mg/dL (0.2-1.3); CALC OSMOLALITY 277 mosm/kg (275-300); CALCIUM 8.5 mg/dL (8.5-10.1); CARBON DIOXIDE 28.1 mmol/L (21.0-32.0); CHLORIDE - SERUM 104 mmol/L (98-107); CREATININE - SERUM 0.9 mg/dL (0.6-1.3); GLUCOSE 93 mg/dL (74-106); POTASSIUM - SERUM 3.8 mmol/L (3.5-5.1); PROTEIN - SERUM 7.1 g/dL (6.4-8.2); SODIUM 139 mmol/L (136-145); UREA NITROGEN 12 mg/dL (7-18); eGFR NON AFRICAN AMERICAN 76 mL/min (90-120)
[2016-05-12 20:34] LABS: MAGNESIUM - SERUM 1.7 mg/dL (1.8-2.4); PHOSPHOROUS 2.9 mg/dL (2.5-4.9); PRO BNP 28 pg/mL (0-125); TROPONIN-I < 0.017 ng/mL (0.000-0.060)
[2016-05-12 20:54] LABS: APPEARANCE CLEAR (CLEAR); BILIRUBIN NEGATIVE (NEGATIVE); COLOR YELLOW (YELLOW); GLUCOSE NEGATIVE (NEGATIVE); KETONE NEGATIVE (NEGATIVE); LEUKOCYTE ESTERASE NEGATIVE (NEGATIVE); NITRITE NEGATIVE (NEGATIVE); PROTEIN NEGATIVE (NEGATIVE); SPECIFIC GRAVITY 1.015 (1.005-1.020); UROBILINOGEN NORMAL (NORMAL)
== END 2016-05-12 23:35 | disposition home or self-care (01) ==
LOC: D.ER 18:41
PROVIDERS: Emergency Medicine; Surgery
DX: J44.1 Chronic obstructive pulmonary disease with (acute) exacerbation (principal); R06.00 Dyspnea, unspecified; R79.1 Abnormal coagulation profile; F32.9 Major depressive disorder, single episode, unspecified; G40.909 Epilepsy, unspecified, not intractable, without status epilepticus

== ENCOUNTER 2016-06-09 19:32 | Emergency (ER) | payer MEDICARE ==
[2016-04-22 14:08] VITALS: BMI 59.3
== END 2016-06-09 23:15 | disposition home or self-care (01) ==
LOC: D.ER 19:32
DX: M54.5 Low back pain (principal); M25.562 Pain in left knee; M25.561 Pain in right knee; F17.200 Nicotine dependence, unspecified, uncomplicated; J45.909 Unspecified asthma, uncomplicated; J44.9 Chronic obstructive pulmonary disease, unspecified; F32.9 Major depressive disorder, single episode, unspecified; G40.909 Epilepsy, unspecified, not intractable, without status epilepticus

== ENCOUNTER 2016-07-13 15:42 | Emergency (ER) | payer MEDICARE ==
[2016-04-22 14:08] VITALS: BMI 59.3
[2016-07-13 16:27] LABS: APPEARANCE HAZY (CLEAR); COLOR YELLOW (YELLOW)
[2016-07-13 16:28] LABS: BILIRUBIN NEGATIVE (NEGATIVE); GLUCOSE NEGATIVE (NEGATIVE); KETONE NEGATIVE (NEGATIVE); LEUKOCYTE ESTERASE NEGATIVE (NEGATIVE); NITRITE NEGATIVE (NEGATIVE); PROTEIN NEGATIVE (NEGATIVE); UROBILINOGEN NORMAL (NORMAL)
[2016-07-13 16:41] LABS: BASOPHILS 0.1 % (0-2); EOSINOPHILS 1.5 % (0-7); HEMATOCRIT 41.5 % (36.0-48.0); HEMOGLOBIN 13.5 g/dL (12-16); IMMATURE GRANULOCYTES 0.3 % (0-5); LYMPHOCYTES 23.5 % (15-50); MCH 28.7 pg (26.0-34.0); MCHC 32.5 g/dL (31.0-37.0); MCV 88.1 fL (80.0-100.0); MEAN PLATELET VOLUME 10.1 fL (7.4-10.4); MONOCYTES 5.9 % (2-11); NEUTROPHILS 68.7 % (40-80); PLATELET COUNT 281 10x3/uL (130-400); RBC 4.71 10x6/uL (4.00-5.40); RDW 14.7 % (11.5-14.5); WBC 12.2 10x3/uL (4.8-10.8)
[2016-07-13 16:59] LABS: HCG SERUM NEGATIVE (NEGATIVE)
[2016-07-13 17:04] LABS: ALBUMIN 3.2 g/dL (3.4-5.0); ALKALINE PHOSPHATASE 63 U/L (46-116); ALT (SGPT) 28 U/L (10-68); BILIRUBIN - TOTAL 0.21 mg/dL (0.2-1.3); CALC OSMOLALITY 280 mosm/kg (275-300); CALCIUM 8.7 mg/dL (8.5-10.1); CARBON DIOXIDE 26.8 mmol/L (21.0-32.0); CHLORIDE - SERUM 104 mmol/L (98-107); CREATININE - SERUM 0.8 mg/dL (0.6-1.3); GLUCOSE 99 mg/dL (74-106); POTASSIUM - SERUM 3.5 mmol/L (3.5-5.1); PROTEIN - SERUM 6.6 g/dL (6.4-8.2); SODIUM 141 mmol/L (136-145); UREA NITROGEN 12 mg/dL (7-18); eGFR NON AFRICAN AMERICAN 87 mL/min (90-120)
== END 2016-07-13 21:04 | disposition home or self-care (01) ==
LOC: D.ER 15:42
PROVIDERS: Emergency Medicine
DX: K92.2 Gastrointestinal hemorrhage, unspecified (principal); F17.200 Nicotine dependence, unspecified, uncomplicated; J45.909 Unspecified asthma, uncomplicated; J44.9 Chronic obstructive pulmonary disease, unspecified; G40.909 Epilepsy, unspecified, not intractable, without status epilepticus

== ENCOUNTER 2016-12-28 20:26 | Emergency (ER) | payer MEDICARE ==
[2016-04-22 14:08] VITALS: BMI 59.3
[2016-12-28 20:45] LABS: APPEARANCE HAZY (CLEAR); BILIRUBIN NEGATIVE (NEGATIVE); COLOR YELLOW (YELLOW); GLUCOSE NEGATIVE (NEGATIVE); KETONE NEGATIVE (NEGATIVE); NITRITE NEGATIVE (NEGATIVE); PROTEIN 1+ mg/dL (NEGATIVE); UROBILINOGEN NORMAL (NORMAL)
[2016-12-28 20:48] LABS: BACTERIA FEW /hpf (NONE SEEN); HCG URINE NEGATIVE (NEGATIVE)
[2016-12-28 20:50] LABS: UDS - AMPHET NEGATIVE QUAL (NEGATIVE); UDS - BARB NEGATIVE QUAL (NEGATIVE); UDS - BENZO NEGATIVE QUAL (NEGATIVE); UDS - COCAINE POSITIVE QUAL (NEGATIVE); UDS - OPIATE NEGATIVE QUAL (NEGATIVE); UDS - PCP NEGATIVE QUAL (NEGATIVE); UDS - THC NEGATIVE QUAL (NEGATIVE)
== END 2016-12-28 21:50 | disposition home or self-care (01) ==
LOC: D.ER 20:26
PROVIDERS: Emergency Medicine
DX: S41.112A Laceration without foreign body of left upper arm, initial encounter (principal); X78.9XXA Intentional self-harm by unspecified sharp object, initial encounter; Y93.89 Activity, other specified; Y92.029 Unspecified place in mobile home as the place of occurrence of the external cause; F32.9 Major depressive disorder, single episode, unspecified; F17.200 Nicotine dependence, unspecified, uncomplicated

== ENCOUNTER 2017-01-15 15:10 | Emergency (ER) | payer MEDICARE ==
[2016-04-22 14:08] VITALS: BMI 59.3
== END 2017-01-15 18:59 | disposition home or self-care (01) ==
LOC: D.ER 15:10
DX: J06.9 Acute upper respiratory infection, unspecified (principal); J44.9 Chronic obstructive pulmonary disease, unspecified; F17.200 Nicotine dependence, unspecified, uncomplicated

== ENCOUNTER → 2017-01-16 16:34 | Outpatient (CLI) | payer MEDICARE ==
[2016-04-22 14:08] VITALS: BMI 59.3
== END | disposition home or self-care (01) ==
LOC: D.CT 16:34
DX: K43.9 Ventral hernia without obstruction or gangrene (principal)

== ENCOUNTER 2017-03-01 17:10 | Emergency (ER) | payer MEDICARE ==
[2016-04-22 14:08] VITALS: BMI 59.3
[2017-03-01 18:16] LABS: BASOPHILS 0.2 % (0-2); EOSINOPHILS 0.9 % (0-7); HEMATOCRIT 39.5 % (36.0-48.0); HEMOGLOBIN 12.9 g/dL (12-16); IMMATURE GRANULOCYTES 0.8 % (0-5); LYMPHOCYTES 21.2 % (15-50); MCH 29.1 pg (26.0-34.0); MCHC 32.7 g/dL (31.0-37.0); MEAN PLATELET VOLUME 9.2 fL (7.4-10.4); MONOCYTES 6.3 % (2-11); NEUTROPHILS 70.6 % (40-80); PLATELET COUNT 233 10x3/uL (130-400); RBC 4.44 10x6/uL (4.00-5.40); RDW 15.5 % (11.5-14.5); WBC 6.4 10x3/uL (4.8-10.8)
[2017-03-01 18:29] LABS: ALBUMIN 2.8 g/dL (3.4-5.0); ANION GAP 11.4 mmol/L (8-16); BILIRUBIN - TOTAL 0.13 mg/dL (0.2-1.3); CALCIUM 8.5 mg/dL (8.5-10.1); CARBON DIOXIDE 27.1 mmol/L (21.0-32.0); POTASSIUM - SERUM 3.5 mmol/L (3.5-5.1); PROTEIN - SERUM 6.6 g/dL (6.4-8.2)
== END 2017-03-01 19:16 | disposition home or self-care (01) ==
LOC: D.ER 17:10
PROVIDERS: Physician Assistant Medical
DX: B34.9 Viral infection, unspecified (principal); J20.9 Acute bronchitis, unspecified; F17.200 Nicotine dependence, unspecified, uncomplicated

== ENCOUNTER 2017-04-09 03:06 | Emergency (ER) | payer MEDICARE ==
[2016-04-22 14:08] VITALS: BMI 59.3
[2017-04-09 03:28] LABS: APPEARANCE CLOUDY (CLEAR); BILIRUBIN NEGATIVE (NEGATIVE); COLOR YELLOW (YELLOW); GLUCOSE NEGATIVE (NEGATIVE); KETONE NEGATIVE (NEGATIVE); NITRITE POSITIVE (NEGATIVE); PROTEIN 1+ mg/dL (NEGATIVE); UROBILINOGEN NORMAL (NORMAL)
[2017-04-09 03:29] LABS: EPITHELIAL CELLS 0-5 /hpf (0-5); WHITE CELLS - URINE 0-5 /hpf (0-5)
[2017-04-09 03:30] LABS: BACTERIA MODERATE /hpf (NONE SEEN); HYALINE CAST 0-5 /lpf (NONE SEEN); MUCUS >1+ /lpf (NONE SEEN)
[2017-04-09 03:49] LABS: BASOPHILS 0.1 % (0-2); EOSINOPHILS 0.4 % (0-7); HEMATOCRIT 43.1 % (36.0-48.0); HEMOGLOBIN 14.6 g/dL (12-16); IMMATURE GRANULOCYTES 0.5 % (0-5); MCH 29.6 pg (26.0-34.0); MCHC 33.9 g/dL (31.0-37.0); MCV 87.2 fL (80.0-100.0); MEAN PLATELET VOLUME 9.5 fL (7.4-10.4); MONOCYTES 5.3 % (2-11); NEUTROPHILS 67.7 % (40-80); PLATELET COUNT 307 10x3/uL (130-400); RBC 4.94 10x6/uL (4.00-5.40); RDW 14.3 % (11.5-14.5); WBC 14.3 10x3/uL (4.8-10.8)
[2017-04-09 03:57] LABS: ANION GAP 13.6 mmol/L (8-16); CALCIUM 9.2 mg/dL (8.5-10.1); CARBON DIOXIDE 25.8 mmol/L (21.0-32.0); POTASSIUM - SERUM 3.4 mmol/L (3.5-5.1)
== END 2017-04-09 05:54 | disposition home or self-care (01) ==
LOC: D.ER 03:06
PROVIDERS: Emergency Medicine
DX: N39.0 Urinary tract infection, site not specified (principal); F17.200 Nicotine dependence, unspecified, uncomplicated; J44.9 Chronic obstructive pulmonary disease, unspecified; G40.909 Epilepsy, unspecified, not intractable, without status epilepticus

== ENCOUNTER → 2017-12-09 10:03 | Outpatient (CLI) | payer MEDICARE ==
[2016-04-22 14:08] VITALS: BMI 59.3
== END | disposition home or self-care (01) ==
LOC: D.MRI 10:03
DX: M54.5 Low back pain (principal)

== ENCOUNTER 2019-01-10 12:49 | Emergency (ER) | payer MEDICARE ==
[2019-01-10 13:09] VITALS: Ht 160 cm
[2019-01-10] MEDS ORDERED: TESSALON PERLE100 MG PO (15:22)
[2019-01-10] MEDS ORDERED: ALBUTEROL SULF8.5 GM INH (15:22)
[2019-01-10] MEDS ORDERED: ZPAK PO (15:22)
[2019-01-10] MEDS ORDERED: MUCINEX600 MG PO (15:22)
[2019-01-10 16:40] VITALS: BP 121/77
== END 2019-01-10 16:40 | disposition home or self-care (01) ==
LOC: D.ER 12:49
DX: J40 Bronchitis, not specified as acute or chronic (principal); F17.210 Nicotine dependence, cigarettes, uncomplicated; H40.9 Unspecified glaucoma

== ENCOUNTER 2019-04-04 11:50 | Emergency (ER) | payer MEDICARE, MEDICAID ==
[~2019-04-04] VITALS: Ht 160 cm; Wt 159.1 kg
[~2019-04-04 11:50] MED LIST changes: +ALBUTEROL SULF8.5 GM INH; +MUCINEX600 MG PO; +TESSALON PERLE100 MG PO; +ZPAK PO
[2019-04-04 12:00] VITALS: Ht 160 cm; Wt 159.1 kg
--- NOTE | 2019-04-04 12:38 | NUR ---
DOCTOR TAMMY NOTIFIED AND REVIEWED PT'S BEHAVIOR AND ASSESSMENT RESULTS. PT IS A HIGH RISK. SITTER ORDERED AND AT BEDSIDE. SAFETY PLAN INITIATED. RESOURCES GIVEN AND SHE VERBALIZES UNDERSTANDING.
[2019-04-04 12:44] LABS: BASOPHILS 0.2 % (0-2); EOSINOPHILS 0.5 % (0-7); HEMATOCRIT 43.2 % (36.0-48.0); HEMOGLOBIN 14.5 g/dL (12-16); IMMATURE GRANULOCYTES 0.4 % (0-5); LYMPHOCYTES 31.4 % (15-50); MCH 29.1 pg (26.0-34.0); MCHC 33.6 g/dL (31.0-37.0); MCV 86.6 fL (80.0-100.0); MEAN PLATELET VOLUME 9.6 fL (7.4-10.4); MONOCYTES 5.9 % (2-11); NEUTROPHILS 61.6 % (40-80); PLATELET COUNT 346 10x3/uL (130-400); RBC 4.99 10x6/uL (4.00-5.40); RDW 14.6 % (11.5-14.5); WBC 12.1 10x3/uL (4.8-10.8)
[2019-04-04 12:59] LABS: ANION GAP 13.8 mmol/L (8-16); CALCIUM 8.8 mg/dL (8.5-10.1); CARBON DIOXIDE 25.2 mmol/L (21.0-32.0)
[2019-04-04 13:02] LABS: BILIRUBIN NEGATIVE (NEGATIVE); GLUCOSE NEGATIVE (NEGATIVE); KETONE NEGATIVE (NEGATIVE); NITRITE NEGATIVE (NEGATIVE); SPECIFIC GRAVITY 1.015 (1.005-1.020); UROBILINOGEN NORMAL (NORMAL)
[2019-04-04 13:06] LABS: ALBUMIN 3.4 g/dL (3.4-5.0); BILIRUBIN - TOTAL 0.21 mg/dL (0.2-1.3); MAGNESIUM - SERUM 2.5 mg/dL (1.8-2.4); PROTEIN - SERUM 7.9 g/dL (6.4-8.2)
[2019-04-04 13:11] LABS: UDS - AMPHET NEGATIVE QUAL (NEGATIVE); UDS - BARB NEGATIVE QUAL (NEGATIVE); UDS - BENZO NEGATIVE QUAL (NEGATIVE); UDS - COCAINE POSITIVE QUAL (NEGATIVE); UDS - OPIATE NEGATIVE QUAL (NEGATIVE); UDS - PCP NEGATIVE QUAL (NEGATIVE); UDS - THC NEGATIVE QUAL (NEGATIVE)
[2019-04-04 17:00] VITALS: BP 146/88
== END 2019-04-04 18:04 ==
LOC: D.ER 11:50
PROVIDERS: Family Medicine
DX: T14.91XA Suicide attempt, initial encounter (principal); X83.8XXA Intentional self-harm by other specified means, initial encounter; Y93.9 Activity, unspecified; Y92.9 Unspecified place or not applicable; F14.90 Cocaine use, unspecified, uncomplicated; F32.9 Major depressive disorder, single episode, unspecified; F10.10 Alcohol abuse, uncomplicated; J45.909 Unspecified asthma, uncomplicated

== ENCOUNTER 2019-07-02 22:18 | Observation (INO) | payer MEDICARE, MEDICAID ==
[~2019-07-02] VITALS: Ht 160 cm; Wt 159.1 kg
[2019-07-02] MEDS ORDERED: TRILEPTAL300 MG PO (22:46)
[2019-07-02] MEDS ORDERED: THORAZINE50 MG (22:46)
[2019-07-02] MEDS ORDERED: TOPAMAX100 MG PO (22:47)
[2019-07-02] MEDS ORDERED: EFFEXOR100 MG PO (22:47)
[2019-07-02] MEDS ORDERED: OMEPRAZOLE40 MG PO (22:48)
[2019-07-02 23:27] LABS: BASOPHILS 0.1 % (0-2); EOSINOPHILS 1.7 % (0-7); HEMATOCRIT 42.9 % (36.0-48.0); HEMOGLOBIN 13.9 g/dL (12-16); IMMATURE GRANULOCYTES 0.3 % (0-5); LYMPHOCYTES 24.5 % (15-50); MCH 28.7 pg (26.0-34.0); MCHC 32.4 g/dL (31.0-37.0); MCV 88.5 fL (80.0-100.0); MEAN PLATELET VOLUME 9.4 fL (7.4-10.4); MONOCYTES 5.1 % (2-11); NEUTROPHILS 68.3 % (40-80); PLATELET COUNT 338 10x3/uL (130-400); RBC 4.85 10x6/uL (4.00-5.40); RDW 14.1 % (11.5-14.5); WBC 12.3 10x3/uL (4.8-10.8)
[2019-07-02 23:34] LABS: CALC OSMOLALITY 279 mosm/kg (275-300); CALCIUM 9.1 mg/dL (8.5-10.1); CARBON DIOXIDE 29.9 mmol/L (21.0-32.0); CHLORIDE - SERUM 103 mmol/L (98-107); CREATININE - SERUM 1.1 mg/dL (0.6-1.3); GLUCOSE 106 mg/dL (74-106); POTASSIUM - SERUM 3.8 mmol/L (3.5-5.1); SODIUM 140 mmol/L (136-145); UREA NITROGEN 15 mg/dL (7-18); eGFR NON AFRICAN AMERICAN 59 mL/min (90-120)
[2019-07-02 23:43] LABS: ALBUMIN 3.4 g/dL (3.4-5.0); ALKALINE PHOSPHATASE 65 U/L (30-120); ALT (SGPT) 21 U/L (10-68); AMYLASE - SERUM 38 U/L (25-115); BILIRUBIN - TOTAL 0.29 mg/dL (0.2-1.3); LIPASE 60 U/L (73-393); PROTEIN - SERUM 7.8 g/dL (6.4-8.2)
[2019-07-02 23:44] LABS: TROPONIN-I < 0.017 ng/mL (0.000-0.060)
[2019-07-03 00:34] LABS: BACTERIA MANY /hpf (NEGATIVE); BILIRUBIN NEGATIVE (NEGATIVE); EPITHELIAL CELLS 0-5 /hpf (0-5); GLUCOSE NEGATIVE (NEGATIVE); KETONE NEGATIVE (NEGATIVE); NITRITE POSITIVE (NEGATIVE); RED CELLS - URINE 0-5 /hpf (0-5); SPECIFIC GRAVITY 1.015 (1.005-1.020); UROBILINOGEN NORMAL (NORMAL); WHITE CELLS - URINE 25-50 /hpf (NEGATIVE)
[2019-07-03] MEDS ORDERED: CIPROFLOXACIN750 MG PO (01:45)
[2019-07-03 06:35] VITALS: BP 115/72; BMI 62.1
[2019-07-03 08:00] VITALS: BP 105/54
[2019-07-03 09:11] VITALS: BP 90/44
--- NOTE | 2019-07-03 10:15 | NUR ---
ASSESSMENT PER FLOW SHEET. COMPLAINS OF PAIN IN ABD,MEDS ORDERED PER MAR
[2019-07-03 13:05] VITALS: BP 126/69
[2019-07-03 14:04] VITALS: Ht 160 cm; Wt 159.1 kg
[2019-07-03 14:47] LABS: HEMATOCRIT 40.5 % (36.0-48.0); HEMOGLOBIN 13.2 g/dL (12-16); MCH 28.8 pg (26.0-34.0); MCHC 32.6 g/dL (31.0-37.0); MCV 88.4 fL (80.0-100.0); MEAN PLATELET VOLUME 9.4 fL (7.4-10.4); PLATELET COUNT 295 10x3/uL (130-400); RBC 4.58 10x6/uL (4.00-5.40); RDW 14.4 % (11.5-14.5); WBC 8.9 10x3/uL (4.8-10.8)
[2019-07-03 14:52] LABS: ANION GAP 11.4 mmol/L (8-16); CALCIUM 8.4 mg/dL (8.5-10.1); CARBON DIOXIDE 27.8 mmol/L (21.0-32.0); POTASSIUM - SERUM 4.2 mmol/L (3.5-5.1)
[2019-07-03 15:01] LABS: UDS - AMPHET NEGATIVE QUAL (NEGATIVE); UDS - BARB NEGATIVE QUAL (NEGATIVE); UDS - BENZO NEGATIVE QUAL (NEGATIVE); UDS - COCAINE NEGATIVE QUAL (NEGATIVE); UDS - OPIATE NEGATIVE QUAL (NEGATIVE); UDS - PCP NEGATIVE QUAL (NEGATIVE); UDS - THC NEGATIVE QUAL (NEGATIVE)
[2019-07-03 15:22] LABS: LYMPHOCYTES 20 % (15-50); MONOCYTES 4 % (2-11); NEUTROPHILS 76 % (40-80); PLATELET ESTIMATE NORMAL
[2019-07-03 16:26] VITALS: BP 116/61
--- NOTE | 2019-07-03 17:48 | NUR ---
WANTS FOOD AND WATER. US OF GALL BLADDER COMPLETE.
--- NOTE | 2019-07-03 19:10 | NUR ---
PATIENT IS ALERT AND ORIENTED. SIGNIFICANT OTHER AT BEDSIDE. PATIENT HAS A RT AC IV THAT IS PATENT AND INFUSING NS. PATIENT STATES SHE JUST RECEIVED PAIN MEDICINE FOR FLANK PAIN. PATIENT STATES SHE IS FEELING BETTER NOW BUT DOES NOT LIKE HOW THE MORPHINE MAKES HER FEEL. PATIENT DOES HAS EXPIRATORY WHEEZES IN THE LEFT UPPER AND LOWER LOBES. ENCOURAGED PATIENT TO COUGH AND DEEP BREATHE. EDUCATED AND PROVIDED DEMONSTRATION OF USING PILLOW TO SPLINT WITH. PATIENT PROVIDED RETURN DEMONSTRATION BUT COUGH WEAK. ENCOURAGED TO KEEP TRYING. PATIENT HAS INCENTIVE SPIROMETER AT BEDSIDE. ENCOURAGED TO USE 10X PER HOUR. PATIENT VERBALIZES UNDERSTANDING. DENIES FURTHER NEEDS AT THIS TIME. CALL LIGHT CLOSE. CPOC.
[2019-07-04] VITALS: BP 93/46
--- NOTE | 2019-07-04 00:13 | NUR ---
ASSISTED PATIENT TO BATHROOM. RETURNED BACK TO BED SAFELY. DENIES FURTHER NEEDS AT THIS TIME. CALL LIGHT CLOSE. CPOC.
[2019-07-04 06:47] LABS: BASOPHILS 0.1 % (0-2); EOSINOPHILS 2.1 % (0-7); HEMATOCRIT 39.7 % (36.0-48.0); HEMOGLOBIN 12.5 g/dL (12-16); IMMATURE GRANULOCYTES 0.1 % (0-5); LYMPHOCYTES 28.2 % (15-50); MCH 28.1 pg (26.0-34.0); MCHC 31.5 g/dL (31.0-37.0); MCV 89.2 fL (80.0-100.0); MEAN PLATELET VOLUME 9.4 fL (7.4-10.4); MONOCYTES 5.8 % (2-11); NEUTROPHILS 63.7 % (40-80); PLATELET COUNT 313 10x3/uL (130-400); RBC 4.45 10x6/uL (4.00-5.40); RDW 14.3 % (11.5-14.5); WBC 8.2 10x3/uL (4.8-10.8)
[2019-07-04 07:02] LABS: ALBUMIN 2.7 g/dL (3.4-5.0); ANION GAP 9.3 mmol/L (8-16); BILIRUBIN - TOTAL 0.27 mg/dL (0.2-1.3); CALCIUM 8.1 mg/dL (8.5-10.1); CARBON DIOXIDE 28.8 mmol/L (21.0-32.0); CREATININE - SERUM 0.9 mg/dL (0.6-1.3); POTASSIUM - SERUM 4.1 mmol/L (3.5-5.1); PROTEIN - SERUM 6.5 g/dL (6.4-8.2)
[2019-07-04 08:00] VITALS: BP 105/49
--- NOTE | 2019-07-04 08:00 | NUR ---
ASSESSMENT PER FLOW SHEET. PATIENT IS WITHOUT DISTRESS.CALL LIGHT IN REACH. MONITOR FOR NEEDS
[2019-07-04] MEDS ORDERED: LEVOFLOXACIN500 MG PO (14:01)
--- NOTE | 2019-07-04 15:41 | NUR ---
DISCHARGE INSTRUCTIONS,STATES UNDERSTANDING. IV DCD WITH CATH TIP INTACT. WAITING ON RIDE TO GO HOME
--- NOTE | 2019-07-04 16:10 | NUR ---
LEFT UNIT VIA WHEELCHAIR FOR TRANSPORT HOME
== END 2019-07-04 16:32 | disposition home health service (06) ==
LOC: D.ER 22:18 → OBSVTIME 07-03 02:17 → D.MS 07-03 02:17
PROVIDERS: Family Medicine; ADMIT Internal Medicine Nephrology; ATTEND Internal Medicine Nephrology
DX: K43.9 Ventral hernia without obstruction or gangrene (principal); N39.0 Urinary tract infection, site not specified; G47.33 Obstructive sleep apnea (adult) (pediatric); J45.909 Unspecified asthma, uncomplicated; F41.8 Other specified anxiety disorders; G40.909 Epilepsy, unspecified, not intractable, without status epilepticus; F17.203 Nicotine dependence unspecified, with withdrawal; E66.01 Morbid (severe) obesity due to excess calories

== ENCOUNTER → 2019-07-26 12:45 | Outpatient (CLI) | payer MEDICARE, MEDICAID ==
[2019-07-03 14:04] VITALS: BMI 62.1
[~2019-07-26 12:45] MED LIST changes: +CIPROFLOXACIN750 MG PO; +EFFEXOR100 MG PO; +LEVOFLOXACIN500 MG PO; +OMEPRAZOLE40 MG PO; +THORAZINE50 MG; +TOPAMAX100 MG PO; +TRILEPTAL300 MG PO
== END | disposition home or self-care (01) ==
LOC: D.CT 12:45
PROVIDERS: ATTEND Family Medicine Adult Medicine
DX: R07.89 Other chest pain (principal)

== ENCOUNTER → 2019-08-06 10:08 | Outpatient (CLI) | payer MEDICARE, MEDICAID ==
[2019-07-03 14:04] VITALS: BMI 62.1
== END | disposition home or self-care (01) ==
LOC: D.MRI 10:08
PROVIDERS: ATTEND Family Medicine Adult Medicine
DX: R07.89 Other chest pain (principal)

== ENCOUNTER 2019-08-06 20:16 | Observation (INO) | payer MEDICARE, MEDICAID ==
[~2019-08-06] VITALS: Ht 160 cm; Wt 153.8 kg
--- NOTE | 2019-08-06 20:46 | NUR ---
ELECTRIC METER REPAIRER APPRENTICE AT BEDSIDE.
[2019-08-06 20:59] VITALS: BP 135/76
--- NOTE | 2019-08-06 21:04 | NUR ---
DR DUTTON AT BEDSIDE.
[2019-08-06 21:06] LABS: BASOPHILS 0.2 % (0-2); EOSINOPHILS 2.1 % (0-7); HEMATOCRIT 41.8 % (36.0-48.0); HEMOGLOBIN 13.7 g/dL (12-16); IMMATURE GRANULOCYTES 0.3 % (0-5); LYMPHOCYTES 29.7 % (15-50); MCH 29.2 pg (26.0-34.0); MCHC 32.8 g/dL (31.0-37.0); MCV 89.1 fL (80.0-100.0); MEAN PLATELET VOLUME 9.1 fL (7.4-10.4); MONOCYTES 4.8 % (2-11); NEUTROPHILS 62.9 % (40-80); PLATELET COUNT 294 10x3/uL (130-400); RBC 4.69 10x6/uL (4.00-5.40); RDW 14.4 % (11.5-14.5); WBC 11.6 10x3/uL (4.8-10.8)
[2019-08-06 21:15] LABS: INR 0.87 (0.85-1.17); PROTIME 11.8 SECONDS (11.6-15.0)
[2019-08-06 21:16] LABS: APTT 27.9 SECONDS (22.8-39.4)
[2019-08-06 21:21] LABS: CALC OSMOLALITY 274 mosm/kg (275-300); CALCIUM 8.7 mg/dL (8.5-10.1); CARBON DIOXIDE 30.9 mmol/L (21.0-32.0); CHLORIDE - SERUM 106 mmol/L (98-107); GLUCOSE 99 mg/dL (74-106); POTASSIUM - SERUM 3.8 mmol/L (3.5-5.1); SODIUM 138 mmol/L (136-145); UREA NITROGEN 11 mg/dL (7-18); eGFR NON AFRICAN AMERICAN 66 mL/min (90-120)
[2019-08-06 21:30] VITALS: BP 138/86
[2019-08-06 21:34] LABS: C-REACTIVE PROTEIN 2.6 mg/dL (0.0-0.9); THYROID STIMULATING HORMONE 2.23 uIU/mL (0.36-3.74)
[2019-08-06 21:38] LABS: ALBUMIN 3.1 g/dL (3.4-5.0); ALKALINE PHOSPHATASE 68 U/L (30-120); ALT (SGPT) 15 U/L (10-68); BILIRUBIN - TOTAL 0.11 mg/dL (0.2-1.3); CKMB 0.5 U/L (0.0-3.6); CREATINE KINASE 33 UL (21-215); TROPONIN-I < 0.017 ng/mL (0.000-0.060)
[2019-08-06 22:00] VITALS: BP 142/74
--- NOTE | 2019-08-06 22:00 | NUR ---
PT RESTING IN POSITION OF COMFORT, DENIES NEEDS. WILL CONTINUE TO MONITOR.
[2019-08-06 22:30] VITALS: BP 128/86
--- NOTE | 2019-08-06 22:53 | NUR ---
DR. MUNOZ NOTIFIED AND REVIEWED PT'S BEHAVIOR AND ASSESSMENT RESUTLTS. PT IS A LOW RISK PER DR. MUNOZ. DR. MUNOZ STATED TO GIVE RESOURCES TO PT AT TIME OF DISCHARGE. NO FURTHER ORDERS AT THIS TIME. RESOURCES REVIEWED WITH PT AND SHE VERBALIZED UNDERSTANDING.
[2019-08-06 23:00] VITALS: BP 139/79
--- NOTE | 2019-08-06 23:00 | NUR ---
PT RESTING IN POSITION OF COMFORT, DENIES NEEDS. WILL CONTINUE TO MONITOR.
--- NOTE | 2019-08-06 23:45 | NUR ---
REPORT TO CAMILO CHAVARRIA
[2019-08-07 00:08] VITALS: BP 94/41; BMI 60.3
[2019-08-07 00:13] VITALS: BP 91/41
--- NOTE | 2019-08-07 00:19 | NUR ---
PATIENT TO ROOM, ADMIT COMPLETE. PATIENT ASKING FOR CRANBERRY JUICE, GIVEN. NO S/SX OF DISTRESS AT THIS TIME. CALL LIGHT WITHIN REACH AND BED IN LOWEST LOCKED POSITION.
[2019-08-07 04:54] VITALS: BP 125/65
[2019-08-07 05:29] LABS: BASOPHILS 0.2 % (0-2); EOSINOPHILS 2.5 % (0-7); HEMATOCRIT 42.4 % (36.0-48.0); HEMOGLOBIN 13.3 g/dL (12-16); IMMATURE GRANULOCYTES 0.4 % (0-5); LYMPHOCYTES 32.3 % (15-50); MCH 28.2 pg (26.0-34.0); MCHC 31.4 g/dL (31.0-37.0); MEAN PLATELET VOLUME 9.5 fL (7.4-10.4); NEUTROPHILS 59.6 % (40-80); PLATELET COUNT 334 10x3/uL (130-400); RBC 4.71 10x6/uL (4.00-5.40); RDW 14.5 % (11.5-14.5); WBC 10.5 10x3/uL (4.8-10.8)
[2019-08-07 05:38] LABS: ANION GAP 8.9 mmol/L (8-16); CALCIUM 8.4 mg/dL (8.5-10.1); CARBON DIOXIDE 28.9 mmol/L (21.0-32.0); CREATININE - SERUM 0.9 mg/dL (0.6-1.3); POTASSIUM - SERUM 3.8 mmol/L (3.5-5.1)
[2019-08-07 08:56] VITALS: BP 118/70
[2019-08-07 10:51] VITALS: Ht 160 cm; Wt 153.8 kg
[2019-08-07 12:49] LABS: BILIRUBIN NEGATIVE (NEGATIVE); GLUCOSE NEGATIVE (NEGATIVE); KETONE NEGATIVE (NEGATIVE); NITRITE POSITIVE (NEGATIVE); SPECIFIC GRAVITY 1.015 (1.005-1.020); UROBILINOGEN NORMAL (NORMAL)
[2019-08-07 12:50] LABS: BACTERIA MODERATE /hpf (NEGATIVE); EPITHELIAL CELLS 0-5 /hpf (0-5); RED CELLS - URINE 0-5 /hpf (0-5)
[2019-08-07 12:54] LABS: UDS - AMPHET NEGATIVE QUAL (NEGATIVE); UDS - BARB NEGATIVE QUAL (NEGATIVE); UDS - BENZO NEGATIVE QUAL (NEGATIVE); UDS - COCAINE NEGATIVE QUAL (NEGATIVE); UDS - OPIATE NEGATIVE QUAL (NEGATIVE); UDS - PCP NEGATIVE QUAL (NEGATIVE); UDS - THC NEGATIVE QUAL (NEGATIVE)
[2019-08-07 13:12] VITALS: BP 93/45
[2019-08-07 18:31] VITALS: BP 112/67
--- NOTE | 2019-08-07 19:15 | NUR ---
RECEIVED UP IN BED WITH EYES OPEN AND TV ON. SPOUSE AT BEDSIDE. ALERT AND ORIENTED X4. UP AD YAJAIRA. IV TO RT AC SL. TELEMETRY IN PLACE. EDUCATED ON PREVENTION OF UTI'S.GAVE VERBAL UNDERSTANDING, DENIES ANY NEEDS AT THIS TIME.
[2019-08-08 07:04] LABS: BASOPHILS 0.1 % (0-2); EOSINOPHILS 2.5 % (0-7); HEMATOCRIT 41.8 % (36.0-48.0); HEMOGLOBIN 13.1 g/dL (12-16); IMMATURE GRANULOCYTES 0.4 % (0-5); LYMPHOCYTES 31.2 % (15-50); MCHC 31.3 g/dL (31.0-37.0); MCV 89.3 fL (80.0-100.0); MEAN PLATELET VOLUME 9.6 fL (7.4-10.4); MONOCYTES 4.8 % (2-11); PLATELET COUNT 310 10x3/uL (130-400); RBC 4.68 10x6/uL (4.00-5.40); RDW 14.5 % (11.5-14.5); WBC 10.1 10x3/uL (4.8-10.8)
--- NOTE | 2019-08-08 07:20 | NUR ---
RECIEVE REPORT. ALERT AND ORIENTED X4. SPOUSE AT BEDSIDE. NO SIGN OF DISTRESS. DENIES ANY NEEDS. CONTINUE PLAN OF CARE AND SAFETY PRECAUTIONS.
[2019-08-08 07:30] LABS: ANION GAP 8.3 mmol/L (8-16); CALCIUM 8.2 mg/dL (8.5-10.1); CARBON DIOXIDE 28.9 mmol/L (21.0-32.0); CREATININE - SERUM 0.9 mg/dL (0.6-1.3); MAGNESIUM - SERUM 1.9 mg/dL (1.8-2.4); POTASSIUM - SERUM 4.2 mmol/L (3.5-5.1)
--- NOTE | 2019-08-08 09:40 | EC ---
PATIENT:DAKSHA DAMON DATE OF SERVICE: 08/06/19 SEX: F MEDICAL RECORD: [id number] DATE OF : [birth year] LOCATION:D.M2 D.213 AGE OF PATIENT: 38 ADMISSION DATE: 08/06/19 REFERRING PHYSICIAN: INTERPRETING PHYSICIAN: ALEJANDRA WATTS MD ECHOCARDIOGRAM REPORT ECHO CHARGES 4 ECHO COMPLETE Date: 08/07/19 CLINICAL DIAGNOSIS: PERICARDIAL EFFUSION, CP ECHOCARDIOGRAPHIC MEASUREMENTS (adult normal given) AC root (d.<3.7cm) 2.6 cm LV Septum d (<1.2 cm> 0.8 cm Valve Excursion 1.4 cm LV Septum (systole) 1.1 cm Left Atria (s.<4.0cm> 3.6 cm LVPW d(<1.2cm) 1.1 cm RV (d.<2.3cm) 3.4 cm LVPW (sytole) 1.2 cm LV diastole(<5.6CM) 5.6 cm MV E-F(>70mm/sec) cm LV systole 4.4 cm LVOT Diameter 1.7 cm MV exc.(>10mm) cm Est.ejection fraction (50-75%) % DOPPLER: LVIT cm/sec A 69 cm/sec E 105 cm/sec LA cm/sec RVSP 24.1 mmHg LVOT 129 cm/sec AOP1/2T m/s Asc. Ao 165 cm/sec RVOT 80 cm/sec RA cm/sec PA 107 cm/sec AV Gradient Peak 11.0 mmHg AV Mean 6.6 mmHg AV Area 2.0 cm MV Gradient Peak 6.5 mmHg MV Mean 2.2 mmHg MV Area cm COMMENTS: Lead Presser: Wm [employer] Salesperson: 4 Dr. Watts TAPE# PACS Pericardial Effusion N DATE OF SERVICE: Transthoracic echocardiogram FINDINGS: Left ventricle is normal size, shape, structure, and function. Left atrium is normal. ECHOCARDIOGRAM REPORT [id number] DAKSHA DAMON Aortic valve is normal. Mitral valve is normal. Tricuspid valve is normal. The right ventricular systolic pressures are normal. The right ventricle was mildly enlarged with normal function. Right atrium is grossly normal. Pulmonic valve is normal, but not well visualized. Pericardium is normal. There is no evidence of significant pericardial effusion. There is a considerable anterior fat pad. TRANSINT:[id number] Voice Confirmation ID: [id number] DOCUMENT ID: [id number] ALEJANDRA WATTS MD at 0940 CC: [id number] DICTATION DATE: 08/07/191749 [employer] DEVELOPER: 08/08/19 0239 ADM IN [facility] [address] [place] [address]
[2019-08-08 13:38] VITALS: BP 117/64
[2019-08-08] MEDS ORDERED: CIPRO500 MG PO (13:56)
--- NOTE | 2019-08-08 15:54 | NUR ---
ALERT AND ORIENTED X4. SITTING UP IN BED. DC RT AC TIP INTACT. DISCHARGE INSTRUCTIONS GIVEN VERBALLY AND WRITTEN. DISCHARGE PAPERS SIGNED ON CHART. ESCORT TO RIDE VIA WHEELCHAIR. REMAINS FREE FROM INJURY.
== END 2019-08-08 15:56 | disposition home or self-care (01) ==
LOC: D.ER 20:16 → D.M2 22:17 → OBSVTIME 22:17 → D.M2 08-08 15:56
PROVIDERS: Family Medicine; ADMIT Family Medicine; ATTEND Family Medicine
DX: I31.3 Pericardial effusion (noninflammatory) (principal); N39.0 Urinary tract infection, site not specified; J44.9 Chronic obstructive pulmonary disease, unspecified; J45.909 Unspecified asthma, uncomplicated; G47.33 Obstructive sleep apnea (adult) (pediatric); F17.203 Nicotine dependence unspecified, with withdrawal; F41.8 Other specified anxiety disorders; F31.9 Bipolar disorder, unspecified

== ENCOUNTER 2019-08-26 13:20 | Emergency (ER) | payer MEDICARE, MEDICAID ==
[~2019-08-26] VITALS: Ht 160 cm; Wt 153.6 kg
[2019-08-26 13:23] VITALS: Ht 160 cm; Wt 153.6 kg
[2019-08-26] MEDS ORDERED: HYDROCODON-ACE1 EAC2 PO (14:35)
[2019-08-26] MEDS ORDERED: IBUPROFEN800 MG PO (14:35)
[2019-08-26 15:22] VITALS: BP 118/64
== END 2019-08-26 15:30 | disposition home or self-care (01) ==
LOC: D.ER 13:20
DX: S46.212A Strain of muscle, fascia and tendon of other parts of biceps, left arm, initial encounter (principal); N76.0 Acute vaginitis; A59.01 Trichomonal vulvovaginitis; W19.XXXA Unspecified fall, initial encounter; Y93.9 Activity, unspecified; Y92.9 Unspecified place or not applicable; J44.9 Chronic obstructive pulmonary disease, unspecified; Z72.0 Tobacco use; M25.552 Pain in left hip

== ENCOUNTER 2019-09-13 13:12 | Inpatient (IN) | payer MEDICARE, MEDICAID ==
[~2019-09-13] VITALS: Ht 160 cm; Wt 154.2 kg
[~2019-09-13 13:12] MED LIST changes: +HYDROCODON-ACE1 EAC2 PO; +IBUPROFEN800 MG PO
[2019-09-13 14:36] LABS: BASOPHILS 0.1 % (0-2); EOSINOPHILS 2.7 % (0-7); HEMATOCRIT 38.5 % (36.0-48.0); HEMOGLOBIN 12.5 g/dL (12-16); IMMATURE GRANULOCYTES 0.4 % (0-5); LYMPHOCYTES 17.7 % (15-50); MCH 28.5 pg (26.0-34.0); MCHC 32.5 g/dL (31.0-37.0); MCV 87.7 fL (80.0-100.0); MEAN PLATELET VOLUME 9.5 fL (7.4-10.4); MONOCYTES 6.4 % (2-11); NEUTROPHILS 72.7 % (40-80); PLATELET COUNT 283 10x3/uL (130-400); RBC 4.39 10x6/uL (4.00-5.40); RDW 14.7 % (11.5-14.5); WBC 8.2 10x3/uL (4.8-10.8)
[2019-09-13 14:42] LABS: ANION GAP 8.2 mmol/L (8-16); CALCIUM 8.6 mg/dL (8.5-10.1); CARBON DIOXIDE 27.4 mmol/L (21.0-32.0); CREATININE - SERUM 1.2 mg/dL (0.6-1.3); POTASSIUM - SERUM 3.6 mmol/L (3.5-5.1)
[2019-09-13 14:47] LABS: ALBUMIN 2.8 g/dL (3.4-5.0); BILIRUBIN - TOTAL 0.16 mg/dL (0.2-1.3); PROTEIN - SERUM 7.4 g/dL (6.4-8.2)
[2019-09-13 15:48] LABS: BILIRUBIN NEGATIVE (NEGATIVE); GLUCOSE NEGATIVE (NEGATIVE); KETONE NEGATIVE (NEGATIVE); NITRITE POSITIVE (NEGATIVE); UROBILINOGEN NORMAL (NORMAL); WHITE CELLS - URINE >50 /hpf (NEGATIVE)
[2019-09-13 15:49] LABS: BACTERIA MANY /hpf (NEGATIVE); EPITHELIAL CELLS 0-5 /hpf (0-5)
--- NOTE | 2019-09-13 18:12 | NUR ---
TO ER #10, ASSUMED CARE OF PT. PT C/O RIGHT FLANK/BACK PAIN. DENIES DYSURIA
[2019-09-13 18:13] VITALS: BP 135/60
--- NOTE | 2019-09-13 19:03 | NUR ---
BS REPORT TO CAMILO BAL
[2019-09-13 20:51] VITALS: BP 103/53
--- NOTE | 2019-09-13 21:24 | NUR ---
PT TO FLOOR AT THIS TIME. PT DENIES ANY PAIN OR NEEDS AT THIS TIME. CL IN REACH, BED IN LOWEST POSITION. ASSESSMENT COMPLETE. AAXO4.
[2019-09-13] MEDS ORDERED: ELAVIL25 MG PO (21:26)
[2019-09-13] MEDS ORDERED: XANAX2 MG PO (21:26)
[2019-09-13] MEDS ORDERED: TRILEPTAL600 MG PO (21:26)
[2019-09-13] MEDS ORDERED: BUPROPION XL300 MG PO (21:26)
[2019-09-13] MEDS ORDERED: EFFEXOR XR75 MG PO (21:27)
[2019-09-13] MEDS ORDERED: TOPAMAX100 MG PO (21:27)
[2019-09-13] MEDS ORDERED: THORAZINE50 MG PO (21:27)
--- NOTE | 2019-09-13 23:03 | NUR ---
PT DENIES NEED TO TAKE HOME MEDICATIONS TONIGHT, SHE WISHES TO START THEM IN THE MORNING.
[2019-09-14] VITALS (7 sets, daily range): BP systolic 95–141; BP diastolic 45–65; Ht 160 cm; Wt 154.2 kg
[2019-09-14 01:18] LABS: APTT 38.3 SECONDS (22.8-39.4); INR 0.91 (0.85-1.17); PROTIME 12.3 SECONDS (11.6-15.0)
[2019-09-14 06:12] LABS: BASOPHILS 0.1 % (0-2); EOSINOPHILS 3.1 % (0-7); HEMATOCRIT 36.3 % (36.0-48.0); HEMOGLOBIN 11.6 g/dL (12-16); IMMATURE GRANULOCYTES 0.4 % (0-5); LYMPHOCYTES 28.2 % (15-50); MCV 87.7 fL (80.0-100.0); MEAN PLATELET VOLUME 9.8 fL (7.4-10.4); MONOCYTES 9.1 % (2-11); NEUTROPHILS 59.1 % (40-80); PLATELET COUNT 275 10x3/uL (130-400); RBC 4.14 10x6/uL (4.00-5.40); RDW 14.5 % (11.5-14.5); WBC 7.1 10x3/uL (4.8-10.8)
[2019-09-14 06:31] LABS: ALBUMIN 2.4 g/dL (3.4-5.0); ANION GAP 8.5 mmol/L (8-16); BILIRUBIN - TOTAL 0.21 mg/dL (0.2-1.3); CALCIUM 8.2 mg/dL (8.5-10.1); CARBON DIOXIDE 27.4 mmol/L (21.0-32.0); CREATININE - SERUM 1.1 mg/dL (0.6-1.3); POTASSIUM - SERUM 3.9 mmol/L (3.5-5.1); PROTEIN - SERUM 6.4 g/dL (6.4-8.2)
--- NOTE | 2019-09-14 07:00 | NUR ---
RECEIVED REPORT. ASSUMED CARE OF PATIENT. CALL LIGHT WITHIN REACH. RESTING IN BED WITH EYES OPEN. COMPLAINS OF SLIGHT ABD PAIN. WHITE BOARD UPDATED. BEDSIDE SHIFT REPORT COMPLETE. DENIES NAUSEA AT THIS TIME. NO DISTRESS.
[2019-09-14 16:35] LABS: UDS - AMPHET NEGATIVE QUAL (NEGATIVE); UDS - BARB NEGATIVE QUAL (NEGATIVE); UDS - BENZO NEGATIVE QUAL (NEGATIVE); UDS - COCAINE NEGATIVE QUAL (NEGATIVE); UDS - OPIATE NEGATIVE QUAL (NEGATIVE); UDS - PCP NEGATIVE QUAL (NEGATIVE); UDS - THC NEGATIVE QUAL (NEGATIVE)
--- NOTE | 2019-09-14 18:44 | NUR ---
REFUSED SCDs, PATIENT UP AMBULATING AD YAJAIRA IN ROOM.
--- NOTE | 2019-09-14 19:00 | NUR ---
REPORT RECEIVED, WILL CONTINUE POC. PATIENT IS AAOX4, LYING IN BED. NO S/S OF DISTRESS OBSERVED, RR EVEN AND UNLABORED ON ROOM AIR. PATIENT DENIES NEEDS AT THIS TIME. CL IN REACH, BED LOCKED AND LOWERED. WILL CTM.
[2019-09-15] VITALS: BP 104/56
[2019-09-15 04:00] VITALS: BP 123/63
[2019-09-15 07:00] LABS: BASOPHILS 0.1 % (0-2); EOSINOPHILS 2.8 % (0-7); HEMATOCRIT 35.9 % (36.0-48.0); HEMOGLOBIN 11.3 g/dL (12-16); IMMATURE GRANULOCYTES 0.4 % (0-5); LYMPHOCYTES 33.7 % (15-50); MCH 27.9 pg (26.0-34.0); MCHC 31.5 g/dL (31.0-37.0); MCV 88.6 fL (80.0-100.0); MEAN PLATELET VOLUME 9.6 fL (7.4-10.4); MONOCYTES 7.2 % (2-11); NEUTROPHILS 55.8 % (40-80); PLATELET COUNT 278 10x3/uL (130-400); RBC 4.05 10x6/uL (4.00-5.40); RDW 14.7 % (11.5-14.5); WBC 7.1 10x3/uL (4.8-10.8)
[2019-09-15 07:15] LABS: ALBUMIN 2.4 g/dL (3.4-5.0); ANION GAP 11.1 mmol/L (8-16); BILIRUBIN - TOTAL 0.19 mg/dL (0.2-1.3); CALCIUM 8.2 mg/dL (8.5-10.1); CARBON DIOXIDE 24.8 mmol/L (21.0-32.0); MAGNESIUM - SERUM 2.1 mg/dL (1.8-2.4); POTASSIUM - SERUM 3.9 mmol/L (3.5-5.1); PROTEIN - SERUM 6.5 g/dL (6.4-8.2)
[2019-09-15 08:00] VITALS: BP 110/65
[2019-09-15] MEDS ORDERED: NICODERM CQ1 EAC3 TRANSDERM (09:39)
[2019-09-15] MEDS ORDERED: LEVAQUIN750 MG PO (09:40)
--- NOTE | 2019-09-16 11:59 | MORECARE ---
CASE MANAGEMENT DISCHARGE SUMMARY PATIENT: DAKSHA DAMON UNIT: [id number] ADM DATE: 09/13/19 AGE: 38 : 82 SEX: F ROOM/BED: D.2107 AUTHOR: CARLOS HE PHYSICIAN: REFERRING PHYSICIAN: RENEE AWAD MD DATE OF SERVICE: 09/16/19 Discharge Plan Patient Name: DAKSHA DAMON Facility: [facility]:[place] : 1980 Planned Disposition: Home Anticipated Discharge Date: 09/15/19 Discharge Date: 09/15/2019 Expected LOS: 2 Initial Reviewer: [email or web address] Initial Review Date: 09/13/2019 Generated: 09/16/19 12:58 pm Patient Name: DAKSHA DAMON Page [id number] at 1159 All edits/amendments must be made on the electronic document DICTATION DATE: 09/16/19 1158 FIELD REPRESENTATIVES DIRECTOR: ZHANE 09/16/19 1158 RPT#: [id number] DC DATE:09/15/19 STATUS: DIS IN [facility] [address] [place] [address] END OF REPORT
== END 2019-09-15 14:15 | disposition home or self-care (01) | DRG 690 ==
LOC: D.ER 13:12 → D.M2 20:21
PROVIDERS: Family Medicine; ADMIT Family Medicine; ATTEND Family Medicine
DX: N10 Acute pyelonephritis (principal); F17.203 Nicotine dependence unspecified, with withdrawal; N39.0 Urinary tract infection, site not specified; J44.9 Chronic obstructive pulmonary disease, unspecified; B19.20 Unspecified viral hepatitis C without hepatic coma; I11.0 Hypertensive heart disease with heart failure; I50.9 Heart failure, unspecified; K21.9 Gastro-esophageal reflux disease without esophagitis; E66.01 Morbid (severe) obesity due to excess calories; L71.9 Rosacea, unspecified; G47.33 Obstructive sleep apnea (adult) (pediatric); F41.8 Other specified anxiety disorders; G47.00 Insomnia, unspecified; F31.9 Bipolar disorder, unspecified

== ENCOUNTER 2019-09-30 18:24 | Emergency (ER) | payer MEDICARE, MEDICAID ==
[~2019-09-30] VITALS: Ht 160 cm; Wt 154.5 kg
[~2019-09-30 18:24] MED LIST changes: +BUPROPION XL300 MG PO; +EFFEXOR XR75 MG PO; +ELAVIL25 MG PO; +LEVAQUIN750 MG PO; +NICODERM CQ1 EAC3 TRANSDERM; +THORAZINE50 MG PO; +TRILEPTAL600 MG PO
[2019-09-30 18:35] VITALS: Ht 160 cm; Wt 154.5 kg
[2019-09-30 19:16] LABS: BASOPHILS 0.2 % (0-2); HEMATOCRIT 39.5 % (36.0-48.0); HEMOGLOBIN 12.8 g/dL (12-16); IMMATURE GRANULOCYTES 0.3 % (0-5); LYMPHOCYTES 24.4 % (15-50); MCH 28.6 pg (26.0-34.0); MCHC 32.4 g/dL (31.0-37.0); MCV 88.2 fL (80.0-100.0); MEAN PLATELET VOLUME 9.7 fL (7.4-10.4); MONOCYTES 5.4 % (2-11); NEUTROPHILS 67.7 % (40-80); PLATELET COUNT 262 10x3/uL (130-400); RBC 4.48 10x6/uL (4.00-5.40); RDW 14.9 % (11.5-14.5); WBC 11.2 10x3/uL (4.8-10.8)
[2019-09-30 19:21] LABS: CALC OSMOLALITY 279 mosm/kg (275-300); CALCIUM 8.6 mg/dL (8.5-10.1); CARBON DIOXIDE 28.3 mmol/L (21.0-32.0); CHLORIDE - SERUM 107 mmol/L (98-107); CREATININE - SERUM 0.9 mg/dL (0.6-1.3); GLUCOSE 99 mg/dL (74-106); POTASSIUM - SERUM 3.9 mmol/L (3.5-5.1); SODIUM 140 mmol/L (136-145); UREA NITROGEN 15 mg/dL (7-18); eGFR NON AFRICAN AMERICAN 75 mL/min (90-120)
[2019-09-30 19:23] LABS: APTT 28.1 SECONDS (22.8-39.4); INR 0.89 (0.85-1.17)
[2019-09-30 19:38] LABS: ALBUMIN 3.1 g/dL (3.4-5.0); ALKALINE PHOSPHATASE 60 U/L (30-120); ALT (SGPT) 33 U/L (10-68); BILIRUBIN - TOTAL 0.23 mg/dL (0.2-1.3); CKMB 0.6 U/L (0.0-3.6); CREATINE KINASE 64 UL (21-215); MAGNESIUM - SERUM 1.9 mg/dL (1.8-2.4); PRO BNP 213 pg/mL (0-125); PROTEIN - SERUM 6.8 g/dL (6.4-8.2)
[2019-09-30 19:39] LABS: TROPONIN-I < 0.017 ng/mL (0.000-0.060)
[2019-09-30 20:04] LABS: BILIRUBIN NEGATIVE (NEGATIVE); GLUCOSE NEGATIVE (NEGATIVE); KETONE NEGATIVE (NEGATIVE); NITRITE POSITIVE (NEGATIVE); UROBILINOGEN NORMAL (NORMAL)
[2019-09-30 20:07] LABS: BACTERIA MANY /hpf (NEGATIVE); RED CELLS - URINE NONE SEEN /hpf (0-5)
[2019-09-30] MEDS ORDERED: FUROSEMIDE20 MG PO (20:20)
[2019-09-30 20:32] VITALS: BP 126/78
== END 2019-09-30 20:30 | disposition home or self-care (01) ==
LOC: D.ER 18:24
PROVIDERS: Emergency Medicine; Family Medicine
DX: R60.0 Localized edema (principal); I50.9 Heart failure, unspecified; J44.9 Chronic obstructive pulmonary disease, unspecified; F17.210 Nicotine dependence, cigarettes, uncomplicated